=== PATIENT | male | born 1955 | race American Indian/Alaskan Native ===

== ENCOUNTER 2017-05-13 17:45 | Emergency (ER) | payer OTHER ==
[~2017-05-13 17:45] MED LIST changes: -AMLO10 PO; -ASPI81CH PO; -ATOR40TA PO; -LOSARTAN POTAS100 MG PO; -Toprol Xl50 MG PO; -UROCIT-K5 MEQ PO; -WARF3 PO; -WARF5 PO; -ZOLP10 PO
[2017-11-21] MEDS ORDERED: AMLO10 PO (13:21)
[2017-11-21] MEDS ORDERED: WARF5 PO (13:23)
[2017-11-21] MEDS ORDERED: Toprol Xl50 MG PO (13:27)
[2017-11-21] MEDS ORDERED: ASPI81CH PO (13:28)
[2017-11-21] MEDS ORDERED: ATOR40TA PO (13:28)
[2017-11-22] MEDS ORDERED: ZOLP10 PO (06:22)
[2017-12-26] MEDS ORDERED: UROCIT-K5 MEQ PO (14:47)
[2017-12-26] MEDS ORDERED: LOSARTAN POTAS100 MG PO (16:21)
[2017-12-26] MEDS ORDERED: AMLO10 PO (16:21)
== END 2017-05-13 18:38 | disposition left against medical advice (07) ==
LOC: ER 17:45
DX: Z53.21 Procedure and treatment not carried out due to patient leaving prior to being seen by health care provider (principal)

== ENCOUNTER → 2017-05-13 | Outpatient (CLI) | payer OTHER ==
[~2017-05-13] MED LIST: ALBU90OI61 INH; AMLO10 PO; AMLO10/10; ASPI81CH PO; ATOR40TA PO; BP MED PO; CLEM1.34; CONTRAVE ER 8-1 EACH PO; DYMISTA NASAL S23 GM; HYDCHL25 PO; LANS30EC PO; LOSA25 PO; LOSARTAN POTAS100 MG PO; METCAR500 PO; MOME220I INH; MONT10T PO; OXYC10ER PO; PREVACID PO; TRAM50 PO; Toprol Xl50 MG PO; UROCIT-K5 MEQ PO; WARF3 PO; WARF5 PO; WARF6 PO; ZOLP10 PO; Zofran4 MG PO
[2017-05-13 19:07] LABS: BASOPHILS ABSOLUTE AUTO 0.06 K/mm3 (0.00-0.23); BASOPHILS PERCENT AUTO 0 % (0-2); EOSINOPHILS ABSOLUTE AUTO 0.02 K/mm3 (0.00-0.68); EOSINOPHILS PERCENT AUTO 0 % (0-6); Hematocrit 52.3 % (37.0-53.0); Hemoglobin 17.4 g/dL (13.5-17.5); IMMATURE GRAN ABSOLUTE AUTO 0.14 K/mm3 (0.00-0.10); IMMATURE GRAN PERCENT AUTO 1 % (0-1); LYMPHOCYTES ABSOLUTE AUTO 1.77 K/mm3 (0.84-5.20); LYMPHOCYTES PERCENT AUTO 13 % (21-46); MONOCYTES ABSOLUTE AUTO 1.25 K/mm3 (0.16-1.47); MONOCYTES PERCENT AUTO 9 % (4-13); Mean Corpuscular HGB 30.9 pg (26.0-34.0); Mean Corpuscular HGB Conc 33.3 g/dL (31.5-36.5); Mean Corpuscular Volume 93 fL (80-100); Mean Platelet Volume 9.9 fL (9.1-12.4); NEUTROPHILS ABSOLUTE AUTO 10.56 K/mm3 (1.96-9.15); NEUTROPHILS PERCENT AUTO 77 % (41-73); Platelet Count 324 K/mm3 (150-400); RDW Coefficient Variation 14.3 % (11.7-14.2); RDW Standard Deviation 48.5 fL (35.1-46.3); Red Blood Cell Count 5.64 M/mm3 (4.30-5.90)
[2017-05-13 19:19] LABS: Albumin, Blood 4.3 g/dL (3.4-5.0); Albumin/Globulin Ratio 1.3 (0.8-1.8); Bilirubin, Total 0.5 mg/dL (0.1-1.0); Bun/Creatinine Ratio 15.4 (12.0-20.0); Calcium, Blood 9.8 mg/dL (8.5-10.1); Creatinine, Blood 1.43 mg/dL (0.60-1.20); Globulin, Blood 3.3 g/dL (2.2-4.0); Potassium, Blood 4.3 mmol/L (3.5-5.5); Total Protein, Blood 7.6 g/dL (6.4-8.2)
== END ==
LOC: LAB EV 19:03
PROVIDERS: Internal Medicine
DX: R10.9 Unspecified abdominal pain (principal)
CPT/HCPCS: 80053; 85025

== ENCOUNTER 2017-05-15 07:30 | Emergency (ER) | payer OTHER ==
[~2017-05-15] VITALS: Ht 185.4 cm; Wt 113.4 kg
[2017-05-15 08:22] LABS: BASOPHILS ABSOLUTE AUTO 0.03 K/mm3 (0.00-0.23); BASOPHILS PERCENT AUTO 0 % (0-2); EOSINOPHILS ABSOLUTE AUTO 0.01 K/mm3 (0.00-0.68); EOSINOPHILS PERCENT AUTO 0 % (0-6); Hematocrit 47.5 % (37.0-53.0); Hemoglobin 15.3 g/dL (13.5-17.5); IMMATURE GRAN ABSOLUTE AUTO 0.11 K/mm3 (0.00-0.10); IMMATURE GRAN PERCENT AUTO 1 % (0-1); LYMPHOCYTES ABSOLUTE AUTO 1.11 K/mm3 (0.84-5.20); LYMPHOCYTES PERCENT AUTO 6 % (21-46); MONOCYTES ABSOLUTE AUTO 1.45 K/mm3 (0.16-1.47); MONOCYTES PERCENT AUTO 8 % (4-13); Mean Corpuscular HGB 29.8 pg (26.0-34.0); Mean Corpuscular HGB Conc 32.2 g/dL (31.5-36.5); Mean Corpuscular Volume 93 fL (80-100); Mean Platelet Volume 9.3 fL (9.1-12.4); NEUTROPHILS ABSOLUTE AUTO 15.03 K/mm3 (1.96-9.15); NEUTROPHILS PERCENT AUTO 85 % (41-73); Platelet Count 271 K/mm3 (150-400); RDW Coefficient Variation 14.1 % (11.7-14.2); RDW Standard Deviation 48.3 fL (35.1-46.3); Red Blood Cell Count 5.13 M/mm3 (4.30-5.90); White Blood Cell Count 17.74 K/mm3 (4.00-11.30)
[2017-05-15 08:42] LABS: Bun/Creatinine Ratio 11.6 (12.0-20.0); Calcium, Blood 8.5 mg/dL (8.5-10.1); Creatinine, Blood 2.07 mg/dL (0.60-1.20)
[2017-05-15 09:07] LABS: Albumin, Blood 3.4 g/dL (3.4-5.0); Albumin/Globulin Ratio 0.8 (0.8-1.8); Bilirubin, Total 0.5 mg/dL (0.1-1.0); Bun/Creatinine Ratio 11.8 (12.0-20.0); Calcium, Blood 8.6 mg/dL (8.5-10.1); Creatinine, Blood 2.04 mg/dL (0.60-1.20); Total Protein, Blood 7.4 g/dL (6.4-8.2)
[2017-05-15 09:10] LABS: International Normalized Ratio 3.25; Prothrombin Time Results 35.1 Sec (9.7-11.5)
[2017-05-15 09:34] LABS: Source, Urine Clean Catch
[2017-05-15 09:39] LABS: Bilirubin, Urine Neg (Neg); Blood, Urine 3+ (Neg); Glucose Qualitative, Urine Neg (Neg); Ketones, Urine 2+ (Neg); Leukocyte Esterase, Urine Neg (Neg); Nitrite, Urine Neg (Neg); Protein, Urine 1+ (Neg); Urobilinogen, Urine NORM (Normal)
[2017-05-15 10:21] LABS: Appearance, Urine Clear (Clear); Color, Urine Yellow (P-Yellow)
[2017-05-15 10:23] LABS: Bacteria Rare /hpf; Squamous Epithelial Cells Rare /hpf (Few)
[2017-11-21] MEDS ORDERED: AMLO10 PO (13:21)
[2017-11-21] MEDS ORDERED: WARF5 PO (13:23)
[2017-11-21] MEDS ORDERED: Toprol Xl50 MG PO (13:27)
[2017-11-21] MEDS ORDERED: ASPI81CH PO (13:28)
[2017-11-21] MEDS ORDERED: ATOR40TA PO (13:28)
[2017-11-22] MEDS ORDERED: ZOLP10 PO (06:22)
[2017-12-26] MEDS ORDERED: UROCIT-K5 MEQ PO (14:47)
[2017-12-26] MEDS ORDERED: AMLO10 PO (16:21)
[2017-12-26] MEDS ORDERED: LOSARTAN POTAS100 MG PO (16:21)
== END 2017-05-15 11:48 | disposition short-term general hospital (02) ==
LOC: ER 07:30
PROVIDERS: Emergency Medicine
DX: N13.2 Hydronephrosis with renal and ureteral calculous obstruction (principal); N17.9 Acute kidney failure, unspecified; I10 Essential (primary) hypertension; F17.220 Nicotine dependence, chewing tobacco, uncomplicated; Z79.01 Long term (current) use of anticoagulants; Z86.711 Personal history of pulmonary embolism; Z79.899 Other long term (current) drug therapy; Z79.51 Long term (current) use of inhaled steroids
CPT/HCPCS: 36415; 74176; 80048; 80053; 81001; 83690; 85025; 85610; 96374; 96375; 96376; 99285; J1170; J1885; J2405; J7120

== ENCOUNTER → 2017-06-22 | Outpatient (CLI) | payer OTHER | LOC: PLD 15:11 → LAB SHORT 15:11 | DX: D22.5 Melanocytic nevi of trunk (principal) | CPT/HCPCS: 88305 ==

== ENCOUNTER → 2017-08-16 | Outpatient (CLI) | payer OTHER | END | disposition home or self-care (01) | LOC: PLD 07:32 → LAB SHORT 07:32 | DX: D48.5 Neoplasm of uncertain behavior of skin (principal) | CPT/HCPCS: 88305 ==

== ENCOUNTER 2017-11-22 00:55 | Day surgery (SDC) | payer OTHER ==
[2017-11-21 09:43] LABS: BASOPHILS ABSOLUTE AUTO 0.05 K/mm3 (0.00-0.23); BASOPHILS PERCENT AUTO 1 % (0-2); EOSINOPHILS ABSOLUTE AUTO 0.01 K/mm3 (0.00-0.68); EOSINOPHILS PERCENT AUTO 0 % (0-6); Hematocrit 50.8 % (37.0-53.0); Hemoglobin 16.5 g/dL (13.5-17.5); IMMATURE GRAN ABSOLUTE AUTO 0.12 K/mm3 (0.00-0.10); IMMATURE GRAN PERCENT AUTO 1 % (0-1); LYMPHOCYTES ABSOLUTE AUTO 1.44 K/mm3 (0.84-5.20); LYMPHOCYTES PERCENT AUTO 13 % (21-46); MONOCYTES PERCENT AUTO 7 % (4-13); Mean Corpuscular HGB 30.9 pg (26.0-34.0); Mean Corpuscular HGB Conc 32.5 g/dL (31.5-36.5); Mean Corpuscular Volume 95 fL (80-100); Mean Platelet Volume 9.7 fL (9.1-12.4); NEUTROPHILS ABSOLUTE AUTO 8.32 K/mm3 (1.96-9.15); NEUTROPHILS PERCENT AUTO 78 % (41-73); NRBC ABSOLUTE 0.02 K/mm3 (0.00-0.02); NRBC Auto 0.2 /100 WBC (0.0-0.2); Platelet Count 252 K/mm3 (150-400); RDW Coefficient Variation 13.7 % (11.7-14.2); RDW Standard Deviation 48.1 fL (35.1-46.3); Red Blood Cell Count 5.34 M/mm3 (4.30-5.90); White Blood Cell Count 10.74 K/mm3 (4.00-11.30)
[2017-11-21 09:56] LABS: International Normalized Ratio 1.25; Prothrombin Time Results 12.7 Sec (9.7-11.5)
[2017-11-21 10:16] LABS: Anion Gap 7 mmol/L (6-16); Blood Urea Nitrogen 14 mg/dL (8-24); Bun/Creatinine Ratio 13.1 (12.0-20.0); CO2, Blood 27 mmol/L (21-32); Calcium, Blood 9.4 mg/dL (8.5-10.1); Chloride, Blood 104 mmol/L (98-108); Creatinine, Blood 1.07 mg/dL (0.60-1.20); Glomerular Filtration Rate >60 (60-); Glucose, Blood 164 mg/dL (70-99); Potassium, Blood 3.9 mmol/L (3.5-5.5); Sodium, Blood 138 mmol/L (136-145)
[~2017-11-22] VITALS: Ht 185.4 cm; Wt 127.0 kg
[~2017-11-22 00:55] MED LIST changes: +AMLO10 PO; +ASPI81CH PO; +ATOR40TA PO; +Toprol Xl50 MG PO; +WARF5 PO
[2017-11-22] MEDS ORDERED: ZOLP5 PO (06:22)
[2017-11-22] MEDS ORDERED: WARF3 PO (06:22)
== END 2017-11-22 12:15 | disposition home or self-care (01) ==
LOC: MHTC 00:55
PROVIDERS: Internal Medicine Cardiovascular Disease
DX: R94.39 Abnormal result of other cardiovascular function study (principal); R06.09 Other forms of dyspnea; Z86.711 Personal history of pulmonary embolism; I10 Essential (primary) hypertension; E78.5 Hyperlipidemia, unspecified; E66.01 Morbid (severe) obesity due to excess calories; G47.33 Obstructive sleep apnea (adult) (pediatric); Z79.01 Long term (current) use of anticoagulants; Z79.899 Other long term (current) drug therapy; Z68.37 Body mass index [BMI] 37.0-37.9, adult
CPT/HCPCS: 36415; 80048; 85025; 85610; 93458; 99152; 99153; C1769; C1894; J0690; J1644; J2250; J3010; J7030; Q9967

== ENCOUNTER 2018-03-02 18:19 | Emergency (ER) | payer OTHER ==
[~2018-03-02] VITALS: Ht 182.9 cm; Wt 127.0 kg
[~2018-03-02 18:19] MED LIST changes: +LOSARTAN POTAS100 MG PO; +UROCIT-K5 MEQ PO; +WARF3 PO; +ZOLP10 PO
[2018-03-02 19:17] LABS: BASOPHILS ABSOLUTE AUTO 0.04 K/mm3 (0.00-0.23); BASOPHILS PERCENT AUTO 0 % (0-2); EOSINOPHILS ABSOLUTE AUTO 0.04 K/mm3 (0.00-0.68); EOSINOPHILS PERCENT AUTO 0 % (0-6); Hematocrit 51.2 % (37.0-53.0); Hemoglobin 16.5 g/dL (13.5-17.5); IMMATURE GRAN ABSOLUTE AUTO 0.09 K/mm3 (0.00-0.10); IMMATURE GRAN PERCENT AUTO 1 % (0-1); LYMPHOCYTES PERCENT AUTO 15 % (21-46); MONOCYTES ABSOLUTE AUTO 0.82 K/mm3 (0.16-1.47); MONOCYTES PERCENT AUTO 7 % (4-13); Mean Corpuscular HGB 31.4 pg (26.0-34.0); Mean Corpuscular HGB Conc 32.2 g/dL (31.5-36.5); Mean Corpuscular Volume 98 fL (80-100); NEUTROPHILS ABSOLUTE AUTO 8.87 K/mm3 (1.96-9.15); NEUTROPHILS PERCENT AUTO 76 % (41-73); Platelet Count 229 K/mm3 (150-400); RDW Standard Deviation 50.4 fL (35.1-46.3); Red Blood Cell Count 5.25 M/mm3 (4.30-5.90); White Blood Cell Count 11.66 K/mm3 (4.00-11.30)
[2018-03-02 19:30] LABS: International Normalized Ratio 0.98; Prothrombin Time Results 10.1 Sec (9.7-11.5)
[2018-03-02 19:32] LABS: Alanine Aminotransfer (ALT/SGP 73 U/L (12-78); Albumin, Blood 3.6 g/dL (3.4-5.0); Alk Phos 120 U/L (50-136); Anion Gap 8 mmol/L (6-16); Aspartate Aminotrans (AST/SGOT 34 U/L (12-37); Bilirubin, Total 0.4 mg/dL (0.1-1.0); Blood Urea Nitrogen 19 mg/dL (8-24); Bun/Creatinine Ratio 15.6 (12.0-20.0); CO2, Blood 26 mmol/L (21-32); Calcium, Blood 9.2 mg/dL (8.5-10.1); Chloride, Blood 105 mmol/L (98-108); Creatinine, Blood 1.22 mg/dL (0.60-1.20); Globulin, Blood 3.7 g/dL (2.2-4.0); Glomerular Filtration Rate >60 (60-); Glucose, Blood 265 mg/dL (70-99); Potassium, Blood 4.1 mmol/L (3.5-5.5); Sodium, Blood 139 mmol/L (136-145); Total Protein, Blood 7.3 g/dL (6.4-8.2)
== END 2018-03-02 21:25 | disposition home or self-care (01) ==
LOC: ER 18:19
PROVIDERS: Emergency Medicine
DX: K92.1 Melena (principal); I10 Essential (primary) hypertension; Z79.899 Other long term (current) drug therapy
CPT/HCPCS: 36415; 80053; 82272; 85025; 85610; 85730; 99283

== ENCOUNTER 2018-08-06 05:49 | Emergency (ER) | payer OTHER ==
[~2018-08-06] VITALS: Ht 185.4 cm; Wt 127.0 kg
[2018-08-06] MEDS ORDERED: Norco 5-325 Ta1 EACH PO (07:04)
[2018-08-06] MEDS ORDERED: Zofran8 MG PO (07:04)
== END 2018-08-06 07:14 | disposition home or self-care (01) ==
LOC: ER 05:49
DX: M54.41 Lumbago with sciatica, right side (principal); Z79.01 Long term (current) use of anticoagulants; Z79.899 Other long term (current) drug therapy; Z79.82 Long term (current) use of aspirin; I10 Essential (primary) hypertension; Z87.891 Personal history of nicotine dependence
CPT/HCPCS: 96372; 99283-25; J3301; J7512

== ENCOUNTER 2018-10-06 15:37 | Emergency (ER) | payer OTHER ==
[~2018-10-06] VITALS: Ht 175.3 cm; Wt 127.0 kg
[~2018-10-06 15:37] MED LIST changes: +Norco 5-325 Ta1 EACH PO; +Zofran8 MG PO
[2018-10-06] MEDS ORDERED: XARELTO20 MG PO (15:52)
[2018-10-06 17:03] LABS: Source, Urine Clean Catch
[2018-10-06 17:18] LABS: Bilirubin, Urine Neg (Neg); Blood, Urine 1+ (Neg); Glucose Qualitative, Urine Neg (Neg); Ketones, Urine 1+ (Neg); Leukocyte Esterase, Urine Neg (Neg); Nitrite, Urine Neg (Neg); Protein, Urine 2+ (Neg); Urobilinogen, Urine NORM (Normal)
[2018-10-06 18:11] LABS: Appearance, Urine Clear (Clear); Color, Urine Yellow (P-Yellow)
[2018-10-06 18:12] LABS: Bacteria Few /hpf; Squamous Epithelial Cells Few /hpf (Few); White Blood Cells, Urine 0-2 /hpf (0-5)
[2018-10-06 18:13] LABS: Amorphous Light (0-Heavy); Red Blood Cells, Urine Rare /hpf (0-2)
== END 2018-10-06 19:05 | disposition home or self-care (01) ==
LOC: ER 15:37
PROVIDERS: Physician Assistant
DX: G89.18 Other acute postprocedural pain (principal); M54.5 Low back pain; M25.551 Pain in right hip; I10 Essential (primary) hypertension; E11.9 Type 2 diabetes mellitus without complications; E78.5 Hyperlipidemia, unspecified; Z86.711 Personal history of pulmonary embolism; Z86.718 Personal history of other venous thrombosis and embolism; Z87.891 Personal history of nicotine dependence; Z98.890 Other specified postprocedural states
CPT/HCPCS: 73502; 81001; 87086; 96372; 99284-25; A9270; A9270-GY; J1170

== ENCOUNTER → 2018-11-09 | Outpatient (CLI) | payer OTHER ==
[~2018-11-09] MED LIST changes: +XARELTO20 MG PO
[2018-11-09 19:54] LABS: Prostate Specific Antigen 0.442 ng/mL (0.000-4.000)
== END | disposition home or self-care (01) ==
LOC: LAB 16:06 → LAB SHORT 16:06
PROVIDERS: Hospitalist
DX: Z12.5 Encounter for screening for malignant neoplasm of prostate (principal); E11.9 Type 2 diabetes mellitus without complications
CPT/HCPCS: 83036; G0103

== ENCOUNTER → 2019-07-12 | Outpatient (CLI) | payer OTHER ==
[2019-07-12 14:51] LABS: BASOPHILS ABSOLUTE AUTO 0.08 K/mm3 (0.00-0.23); BASOPHILS PERCENT AUTO 1 % (0-2); EOSINOPHILS ABSOLUTE AUTO 0.08 K/mm3 (0.00-0.68); EOSINOPHILS PERCENT AUTO 1 % (0-6); Hemoglobin 17.1 g/dL (13.5-17.5); IMMATURE GRAN ABSOLUTE AUTO 0.14 K/mm3 (0.00-0.10); IMMATURE GRAN PERCENT AUTO 1 % (0-1); LYMPHOCYTES ABSOLUTE AUTO 3.14 K/mm3 (0.84-5.20); LYMPHOCYTES PERCENT AUTO 28 % (21-46); MONOCYTES ABSOLUTE AUTO 1.08 K/mm3 (0.16-1.47); MONOCYTES PERCENT AUTO 10 % (4-13); Mean Corpuscular HGB 31.4 pg (26.0-34.0); Mean Corpuscular HGB Conc 30.8 g/dL (31.5-36.5); Mean Corpuscular Volume 102 fL (80-100); Mean Platelet Volume 10.7 fL (9.1-12.4); NEUTROPHILS ABSOLUTE AUTO 6.84 K/mm3 (1.96-9.15); NEUTROPHILS PERCENT AUTO 60 % (41-73); NRBC ABSOLUTE 0.02 K/mm3 (0.00-0.02); NRBC Auto 0.2 /100 WBC (0.0-0.2); Platelet Count 294 K/mm3 (150-400); RDW Coefficient Variation 14.7 % (11.7-14.2); RDW Standard Deviation 55.7 fL (35.1-46.3); Red Blood Cell Count 5.44 M/mm3 (4.30-5.90); White Blood Cell Count 11.36 K/mm3 (4.00-11.30)
[2019-07-12 14:54] LABS: Hematocrit 55.5 % (37.0-53.0)
[2019-07-12 16:43] LABS: Alanine Aminotransfer (ALT/SGP 79 U/L (12-78); Albumin, Blood 3.8 g/dL (3.4-5.0); Albumin/Globulin Ratio 1.1 (0.8-1.8); Alk Phos 120 U/L (50-136); Anion Gap 6 mmol/L (6-16); Aspartate Aminotrans (AST/SGOT 36 U/L (12-37); Bilirubin, Total 0.5 mg/dL (0.1-1.0); Blood Urea Nitrogen 19 mg/dL (8-24); Bun/Creatinine Ratio 16.7 (12.0-20.0); CO2, Blood 30 mmol/L (21-32); Calcium, Blood 9.5 mg/dL (8.5-10.1); Chloride, Blood 108 mmol/L (98-108); Creatinine, Blood 1.14 mg/dL (0.60-1.20); Globulin, Blood 3.5 g/dL (2.2-4.0); Glomerular Filtration Rate >60 (60-); Glucose, Blood 104 mg/dL (70-99); Potassium, Blood 4.7 mmol/L (3.5-5.5); Prostate Specific Antigen 0.539 ng/mL (0.000-4.000); Sodium, Blood 144 mmol/L (136-145); Total Protein, Blood 7.3 g/dL (6.4-8.2)
[2019-07-16 12:17] LABS: CHOL/HDL RATIO 2.6; Cholesterol 148 mg/dL (50-200); HDL Cholesterol 56 mg/dL (>39); LDL/HDL RATIO 1.2; Low Density Lipoprotein Chol 68 mg/dL (0-110); Triglycerides 118 mg/dL (30-160); Very Low Density Lipoprot Chol 23 mg/dL (6-32)
== END | disposition home or self-care (01) ==
LOC: LAB 09:25 → LAB SHORT 09:25
PROVIDERS: Hospitalist
DX: Z12.5 Encounter for screening for malignant neoplasm of prostate (principal); E11.65 Type 2 diabetes mellitus with hyperglycemia; E78.5 Hyperlipidemia, unspecified; I10 Essential (primary) hypertension
CPT/HCPCS: 80053; 80061; 85025; G0103

== ENCOUNTER → 2020-01-14 | Outpatient (CLI) | payer MEDICARE, OTHER | END | disposition home or self-care (01) | LOC: PLD 10:41 → LAB SHORT 10:41 | DX: D48.5 Neoplasm of uncertain behavior of skin (principal); L82.1 Other seborrheic keratosis | CPT/HCPCS: 88305 ==

== ENCOUNTER 2021-05-27 09:40 | Inpatient (IN) | payer MEDICARE, OTHER ==
[~2021-05-27] VITALS: Ht 185.4 cm; Wt 129.5 kg
[~2021-05-27 09:40] MED LIST changes: -Toprol Xl50 MG PO; -XARELTO20 MG PO
[2021-05-27 10:37] LABS: BASOPHILS ABSOLUTE AUTO 0.07 K/mm3 (0.00-0.23); BASOPHILS PERCENT AUTO 1 % (0-2); EOSINOPHILS ABSOLUTE AUTO 0.07 K/mm3 (0.00-0.68); EOSINOPHILS PERCENT AUTO 1 % (0-6); Hematocrit 48.4 % (37.0-53.0); Hemoglobin 15.4 g/dL (13.5-17.5); IMMATURE GRAN ABSOLUTE AUTO 0.14 K/mm3 (0.00-0.10); IMMATURE GRAN PERCENT AUTO 2 % (0-1); LYMPHOCYTES ABSOLUTE AUTO 1.59 K/mm3 (0.84-5.20); LYMPHOCYTES PERCENT AUTO 17 % (21-46); MONOCYTES ABSOLUTE AUTO 0.92 K/mm3 (0.16-1.47); MONOCYTES PERCENT AUTO 10 % (4-13); Mean Corpuscular HGB 30.1 pg (26.0-34.0); Mean Corpuscular HGB Conc 31.8 g/dL (31.5-36.5); Mean Corpuscular Volume 95 fL (80-100); Mean Platelet Volume 10.4 fL (9.1-12.4); NEUTROPHILS ABSOLUTE AUTO 6.72 K/mm3 (1.96-9.15); NEUTROPHILS PERCENT AUTO 71 % (41-73); Platelet Count 290 K/mm3 (150-400); RDW Coefficient Variation 14.6 % (11.7-14.2); RDW Standard Deviation 51.2 fL (35.1-46.3); Red Blood Cell Count 5.12 M/mm3 (4.30-5.90); White Blood Cell Count 9.51 K/mm3 (4.00-11.30)
[2021-05-27 11:01] LABS: Alanine Aminotransfer (ALT/SGP 46 U/L (12-78); Albumin, Blood 3.2 g/dL (3.4-5.0); Albumin/Globulin Ratio 0.8 (0.8-1.8); Alk Phos 120 U/L (50-136); Anion Gap 3 mmol/L (6-16); Aspartate Aminotrans (AST/SGOT 24 U/L (12-37); Bilirubin, Total 0.3 mg/dL (0.1-1.0); Blood Urea Nitrogen 14 mg/dL (8-24); Bun/Creatinine Ratio 15.8 (12.0-20.0); CO2, Blood 26 mmol/L (21-32); Calcium, Blood 9.4 mg/dL (8.5-10.1); Chloride, Blood 108 mmol/L (98-108); Creatinine, Blood 0.89 mg/dL (0.60-1.20); Globulin, Blood 4.1 g/dL (2.2-4.0); Glomerular Filtration Rate >60 (60-); Glucose, Blood 260 mg/dL (70-99); Potassium, Blood 4.1 mmol/L (3.5-5.5); Sodium, Blood 137 mmol/L (136-145); Total Protein, Blood 7.3 g/dL (6.4-8.2)
[2021-05-27] MEDS ORDERED: XARELTO20 MG PO ×2 (12:09)
[2021-05-27] MEDS ORDERED: TRAM50 PO ×2 (12:09)
[2021-05-27] MEDS ORDERED: LANS30EC PO ×2 (12:09)
[2021-05-27] MEDS ORDERED: Toprol Xl50 MG PO ×2 (12:09)
[2021-05-27] MEDS ORDERED: NOVOLIN 70100 UNIT/4 SC ×2 (12:35)
[2021-05-27] MEDS ORDERED: METF500 PO ×2 (12:35)
[2021-05-27] MEDS ORDERED: POTCIT10 PO ×2 (15:32)
[2021-05-27] MEDS ORDERED: LOSA50 PO ×2 (15:33)
[2021-05-27] MEDS ORDERED: GLIM4 PO ×2 (15:34)
[2021-05-27] MEDS ORDERED: TORSE20 PO ×2 (15:35)
[2021-05-27] MEDS ORDERED: TRADJENTA5 MG PO ×2 (15:36)
[2021-05-27] MEDS ORDERED: AMBIEN5 MG PO ×2 (15:38)
--- NOTE | 2021-05-27 18:07 | NUR ---
PT ARRIVED 1445 AOX4 AND COOPERATIVE OF CARE. PT WAS SETTLED INTO ROOM AND CALL LIGHT WITHIN REACH. PT DENIES ANY NEED FOR PAIN MED. REDNSS ON R ARM HOT TO THE TOUCH. PT IS INDEPENDENT IN ROOM. NO DISTRESS NOTED AT THIS TIME. WILL CONTINUE TO MONITOR.
--- NOTE | 2021-05-28 04:44 | NUR ---
PT IS AWAKE THIS MORNING. PT IS ALERT AND ORIENTED X 4, ON RA BUT DOES USE HIS HOME CPAP AT NIGHT, NOT MONITORED. PT HAS R UA ABCESS THAT IS WARM TO TOUCH, SKIN HAS BEEN MARKED FOR MONITORING. PT DID C/O A HEADACHE, MEDICATED PER EMAR. NO C/O SOB, N/V. PT REMAINED AFEBRILE. NO ACUTE EVENTS OVERNIGHT, PT BELONGINGS AND CALL LIGHT WITHIN REACH.
[2021-05-28 04:54] LABS: Hematocrit 45.2 % (37.0-53.0); Hemoglobin 14.5 g/dL (13.5-17.5); Mean Corpuscular HGB 29.7 pg (26.0-34.0); Mean Corpuscular HGB Conc 32.1 g/dL (31.5-36.5); Mean Corpuscular Volume 92 fL (80-100); Mean Platelet Volume 10.3 fL (9.1-12.4); Platelet Count 255 K/mm3 (150-400); RDW Coefficient Variation 14.7 % (11.7-14.2); RDW Standard Deviation 49.8 fL (35.1-46.3); Red Blood Cell Count 4.89 M/mm3 (4.30-5.90); White Blood Cell Count 9.69 K/mm3 (4.00-11.30)
--- NOTE | 2021-05-28 11:21 | NUR ---
Spiritual Care Visit Request Pt. is awake and in bed. Pt. welcomes my visit. Pt. is pleasant and talkative. Pt. becomes unsettled when nure arrive to give Lovenox injection. After nurse left I sought to normalize the pt. experience. Pt. displayed evidence of reduced anxiety. Established rapport with the pt. through lengthy conversation. Explored issues of james and experience. Prayed with pt. Pt. verbalized gratitude for the spiritual care visit.
--- NOTE | 2021-05-28 17:06 | NUR ---
End of Shift Summary: No changes in mass on right/UE, pt reported 2 new, smaller masses near right/clavicle. IV ABX administred, VSS, afebrile, CBGs 180-263 SSI given AC. Patient denies pain/discomfort r/t masses, only reporting MELISSA.
--- NOTE | 2021-05-29 05:01 | NUR ---
SUMMARY: A/OX4, INDEPENDENT AND CALLS APPROPRIATELY TO SPECIFY NEEDS. HE'S ON IV ABX FOR ASHLEY CELLULITIS. LUMP OBSERVED TO BE RED, WARM AND HARD BUT REMAINS WITHIN DEMARCATED REGION. HE REPORTS AN ADDITIONAL SITE AT R.CLAVICLE BUT ADMITS HE LIKELY "PULLED A MUSCLE MOVING A REFRIGERATOR" PRIOR TO ADMIT. PLAN IS FOR REPEAT SCAN AND TX W/ABX W/NO SURGICAL INTERVENTION REQUIRED AT THIS TIME. TYLENOL AND ULTRAM WERE RECIEVED PRN FOR TOLERABLE RELIEF OF MELISSA. PT APPEARS FLUSHED AND MAYDA BUT WAS AFEBRILE T/O NOCTE. HE WORE CPAP AT BEDTIME AND IS ON RA WA. NO ACUTE CHANGES, VSS/AFEBRILE. WCTM AND REPORT TO DAY RN.
--- NOTE | 2021-05-29 18:10 | NUR ---
END OF SHIFT SUMMARY: Pt had ultrasound done on RUE, results in chart. Hospitalist consulting with Ortho, to discuss abscess draining. No changes to mass on RUE, two smaller masses near clavicle, normal in color/soft. Rightforearm IV infiltration, fluid leaking at site, edematous. D/C'd IV, unable to place new IV. Vitals stable, CBG WNL SSI given this shift.
[2021-05-30 04:47] LABS: BASOPHILS ABSOLUTE AUTO 0.06 K/mm3 (0.00-0.23); BASOPHILS PERCENT AUTO 1 % (0-2); EOSINOPHILS PERCENT AUTO 1 % (0-6); Hematocrit 45.1 % (37.0-53.0); Hemoglobin 14.4 g/dL (13.5-17.5); IMMATURE GRAN ABSOLUTE AUTO 0.17 K/mm3 (0.00-0.10); IMMATURE GRAN PERCENT AUTO 2 % (0-1); LYMPHOCYTES ABSOLUTE AUTO 1.54 K/mm3 (0.84-5.20); LYMPHOCYTES PERCENT AUTO 17 % (21-46); MONOCYTES ABSOLUTE AUTO 1.01 K/mm3 (0.16-1.47); MONOCYTES PERCENT AUTO 11 % (4-13); Mean Corpuscular HGB 29.8 pg (26.0-34.0); Mean Corpuscular HGB Conc 31.9 g/dL (31.5-36.5); Mean Corpuscular Volume 93 fL (80-100); Mean Platelet Volume 10.1 fL (9.1-12.4); NEUTROPHILS ABSOLUTE AUTO 6.02 K/mm3 (1.96-9.15); NEUTROPHILS PERCENT AUTO 68 % (41-73); NRBC ABSOLUTE 0.03 K/mm3 (0.00-0.02); NRBC Auto 0.3 /100 WBC (0.0-0.2); Platelet Count 273 K/mm3 (150-400); RDW Coefficient Variation 14.5 % (11.7-14.2); RDW Standard Deviation 50.1 fL (35.1-46.3); Red Blood Cell Count 4.83 M/mm3 (4.30-5.90)
--- NOTE | 2021-05-30 05:13 | NUR ---
SUMMARY NO NEW ISSUES NOTED. PT DISCOMFORT TX PER EMAR W/ RELIEF. PT HAS SLEPT WELL T/O SHIFT W/ CPAP. PT CURRENTLY SLEEPING IN NO DISTRESS AND BREATHING EASY. CALL LIGHT IN REACH.
[2021-05-30 05:15] LABS: Anion Gap 5 mmol/L (6-16); Blood Urea Nitrogen 12 mg/dL (8-24); Bun/Creatinine Ratio 11.7 (12.0-20.0); CO2, Blood 27 mmol/L (21-32); Calcium, Blood 8.2 mg/dL (8.5-10.1); Chloride, Blood 108 mmol/L (98-108); Creatinine, Blood 1.03 mg/dL (0.60-1.20); Glomerular Filtration Rate >60 (60-); Glucose, Blood 163 mg/dL (70-99); Potassium, Blood 4.2 mmol/L (3.5-5.5); Sodium, Blood 140 mmol/L (136-145)
[2021-05-30] MEDS ORDERED: AMOCLA875 PO ×2 (09:53)
[2021-05-30] MEDS ORDERED: VISBIOME 112.51 EACH PO ×2 (09:57)
--- NOTE | 2021-05-30 10:39 | NUR ---
Pt had abscess aspirated this morning culture sent to lab, results pending. met with pt at the bedside and discharged pt home. Education provided to pt/, regarding new Rx for ABX & probiotic, pt/ verbalized understanding. Removed IVP right/forearm. Pt left unit at 1040.
[2021-06-02 11:11] LABS: B. HENSELAE IGG Negative titer (Neg:<1:320); B. HENSELAE IGM Negative titer (Neg:<1:100); B. QUINTANA IGG Negative titer (Neg:<1:320); B. QUINTANA IGM Negative titer (Neg:<1:100)
[2021-06-04] MEDS ORDERED: METO25ER PO (16:56)
[2021-06-04] MEDS ORDERED: CEFTRIAXONE2 G1 IV (16:58)
[2021-06-04] MEDS ORDERED: VANCOMYCIN HCL1 G1 IV (16:59)
[2021-06-04] MEDS ORDERED: Percocet 5-3251 EACH PO (17:05)
== END 2021-05-30 10:38 | disposition home or self-care (01) | DRG 603 ==
LOC: ER 09:40 → MEDS 13:19
PROVIDERS: Internal Medicine; Nurse Practitioner Acute Care; Physician Assistant; ADMIT Internal Medicine
PROC: 0J9G3ZZ Drainage of Right Lower Arm Subcutaneous Tissue and Fascia, Percutaneous Approach (ICD-10-PCS; principal; 2021-05-30)
DX: L03.113 Cellulitis of right upper limb (principal); E11.9 Type 2 diabetes mellitus without complications; I10 Essential (primary) hypertension; K21.9 Gastro-esophageal reflux disease without esophagitis; G47.33 Obstructive sleep apnea (adult) (pediatric); E66.01 Morbid (severe) obesity due to excess calories; Z79.899 Other long term (current) drug therapy; L02.413 Cutaneous abscess of right upper limb; Z98.890 Other specified postprocedural states; Z68.36 Body mass index [BMI] 36.0-36.9, adult; Z87.891 Personal history of nicotine dependence
CPT/HCPCS: 10030; 36415; 73201; 76882; 76942; 80048; 80053; 82947; 83605; 85025; 85027; 86611; 87070; 87075; 87077; 87186; 87205; 96365; 96366; 99284-25; A9270; J0295; J1650; J1815; J7030; J7050; Q9967

== ENCOUNTER 2021-06-02 14:02 | Inpatient (IN) | payer MEDICARE, OTHER ==
[~2021-06-02] VITALS: Ht 185.4 cm; Wt 127.9 kg
[~2021-06-02 14:02] MED LIST changes: +AMBIEN5 MG PO; +AMOCLA875 PO; +GLIM4 PO; +LOSA50 PO; +METF500 PO; +NOVOLIN 70100 UNIT/4 SC; +POTCIT10 PO; +TORSE20 PO; +TRADJENTA5 MG PO; +Toprol Xl50 MG PO; +VISBIOME 112.51 EACH PO; +XARELTO20 MG PO
[2021-06-03 05:35] LABS: BASOPHILS ABSOLUTE AUTO 0.04 K/mm3 (0.00-0.23); BASOPHILS PERCENT AUTO 1 % (0-2); EOSINOPHILS PERCENT AUTO 0 % (0-6); Hematocrit 47.7 % (37.0-53.0); Hemoglobin 14.9 g/dL (13.5-17.5); IMMATURE GRAN ABSOLUTE AUTO 0.17 K/mm3 (0.00-0.10); IMMATURE GRAN PERCENT AUTO 2 % (0-1); LYMPHOCYTES ABSOLUTE AUTO 1.59 K/mm3 (0.84-5.20); LYMPHOCYTES PERCENT AUTO 20 % (21-46); MONOCYTES ABSOLUTE AUTO 0.94 K/mm3 (0.16-1.47); MONOCYTES PERCENT AUTO 12 % (4-13); Mean Corpuscular HGB 28.9 pg (26.0-34.0); Mean Corpuscular HGB Conc 31.2 g/dL (31.5-36.5); Mean Corpuscular Volume 93 fL (80-100); NEUTROPHILS ABSOLUTE AUTO 5.18 K/mm3 (1.96-9.15); NEUTROPHILS PERCENT AUTO 65 % (41-73); Platelet Count 286 K/mm3 (150-400); RDW Coefficient Variation 14.7 % (11.7-14.2); Red Blood Cell Count 5.15 M/mm3 (4.30-5.90); White Blood Cell Count 7.92 K/mm3 (4.00-11.30)
[2021-06-03 05:53] LABS: Anion Gap 6 mmol/L (6-16); Blood Urea Nitrogen 19 mg/dL (8-24); Bun/Creatinine Ratio 21.7 (12.0-20.0); CO2, Blood 26 mmol/L (21-32); Calcium, Blood 8.2 mg/dL (8.5-10.1); Chloride, Blood 108 mmol/L (98-108); Creatinine, Blood 0.88 mg/dL (0.60-1.20); Glomerular Filtration Rate >60 (60-); Glucose, Blood 179 mg/dL (70-99); Magnesium, Blood 2.4 mg/dL (1.6-2.4); Potassium, Blood 4.5 mmol/L (3.5-5.5); Sodium, Blood 140 mmol/L (136-145)
--- NOTE | 2021-06-03 06:47 | NUR ---
SUMMARY NO NEW ISSUES NOTED. PT SLEPT OFF AND ON DURING SHIFT. PT WOUND VAC IN PLACE AND WORKING WELL. PT ABLE AMBULATE TO RESTROOM WELL. PT CURRENTLY AWAKE AND IN NO DISTRESS. CALL LIGHT IN REACH.
--- NOTE | 2021-06-03 14:32 | NUR ---
WOUND CARE; WOUND VAC FUNCTIONING WNL. PT REPORTS VAC DRESSING CHANGE 06/02/21 NOC SHIFT, NEXT DUE 06/05/21. SPOKE WITH CUFF MATCHER ABOUT WOUND CLINIC REFERRAL ON DC.
--- NOTE | 2021-06-03 15:48 | NUR ---
SHIFT SUMMARY POD1 I&D ON R SHOULDER DUE TO ABSCESS BY DR. BLEDSOE. PT REPORTS MINIMAL PAIN, DIDN'T REQUIRE ANY PAIN MEDS T/O SHIFT. AMBULATES INDEPENDETLY IN ROOM, MAY NEED ASSISTANCE WITH CORDS AND IV LINE. SCD'S IN PLACED. DR. MAGALLON CAME IN TO SEE PT TODAY, RESUME HOME DOSE FOR NOVOLIN 70/30 FROM 20 UNITS TO 25 UNITS AND TRAMADOL 50MG Q4 FOR PAIN. XARELTO DOSE ALSO INCREASED FROM 10 TO 20MG DUE TO HX DVT, OK FROM DR. BLEDSOE. WOUND VACC IN PLACED SUCTION WORKING WELL AND SEALED. PT REPORTS SKIN SENSITIVITY WITH DRESSING CHANGE WITH HIS WOUND VAC, DR. BLEDSOE IS AWARE, PT DISCUSSED HIS CONCERNS. NEW ORDER IN PLACE TO PREMEDICATE PT KENDAL FOR DRESSING CHANGED. PT DENIES N/T, CHEST PAIN AND DIZZINESS. IV FLUIDS INFUSING AND ABX ADMINISTERED. CALL LIGHT WITHIN REACH. WILL PROVIDE REPORT TO ONCOMING NURSE.
--- NOTE | 2021-06-03 15:56 | NUR ---
PLAN FOR PICC PLACEMENT FOR LT ABX TX, CHARGE NURSE NOTIFIED.
[2021-06-03 21:32] LABS: Vancomycin, Trough 19.7 ug/mL (5.0-10.0)
--- NOTE | 2021-06-04 04:52 | NUR ---
SUMMARY PT HAD NO NEW ISSUES NOTED. PT HAS BEEN SLEEPING OFF AND ON DURING SHIFT. PT DISCOMFORT TX PER EMAR W/ RELIEF. PT CURRENTLY AWAKE AND IN NO DISTRESS. CALL LIGHT IN REACH.
--- NOTE | 2021-06-04 14:00 | NUR ---
BRADYCARDIA PT'S HR REMAINS <60. METOPROLOL HELD RELATED TO BRADYCARDIA T/O THE DAY. PT IS ASYMPTOMATIC. MESSAGE LEFT FOR DR. MAGALLON TO NOTIFY OF HELD MEDICATION.
--- NOTE | 2021-06-04 14:23 | NUR ---
REPORT GIVEN TO JADA HAMMER. PT NOTIFIED OF CHANGE OF STAFF.
--- NOTE | 2021-06-04 14:34 | NUR ---
ASSUMED CARE OF PATIENT FROM GLORIA RN, PT IN BED AND COMFORTABLE AT THIS TIME, NO SIGNS OF ANY DISTRESS, ABLE TO MAKE NEEDS KNOWN, IV ABX STARTED ORDERED, CALL LIGHT IN REACH. WILL CTM.
[2021-06-04] MEDS ORDERED: METO25ER PO ×2 (16:56)
[2021-06-04] MEDS ORDERED: CEFTRIAXONE2 G1 IV ×2 (16:58)
[2021-06-04] MEDS ORDERED: VANCOMYCIN HCL1 G1 IV ×2 (16:59)
[2021-06-04] MEDS ORDERED: Percocet 5-3251 EACH PO ×2 (17:05)
--- NOTE | 2021-06-04 18:02 | NUR ---
DISCHARGE SUMMARY S/P I&D, A/OX 4, VSS, TOLERATING PO, PAIN WELL MANAGED, AMBULATES INDEPENDENTLY, VOIDING WELL. DISCUSSED DISCHARGE ORDERS WITH THE PATIENT, WENT OVER HOME CARE, HOME HEALTH, MEDICATIONS, AND PICC THERAPY INFUSIONS. ALL QUESTIONS ANSWERED TO PATIENTS SATISFACTION. PT ESCORTED OUT VIA WC TO PRIVATE AUTO TO GO HOME. PICC LINE IN PLACE FOR OUTPATIENT INFUSIONS.
== END 2021-06-04 17:54 | disposition home or self-care (01) | DRG 603 ==
LOC: SURS 14:02 → ORSCMMR 14:02 → ORD 14:45 → SURS 14:45 → ORSCMMR 14:45 → SURS 17:14
PROVIDERS: ADMIT Orthopaedic Surgery
PROC: 0J9D0ZZ Drainage of Right Upper Arm Subcutaneous Tissue and Fascia, Open Approach (ICD-10-PCS; principal; 2021-06-02 14:45)
DX: L02.413 Cutaneous abscess of right upper limb (principal); E11.9 Type 2 diabetes mellitus without complications; I10 Essential (primary) hypertension; Z96.653 Presence of artificial knee joint, bilateral; E66.9 Obesity, unspecified; G47.30 Sleep apnea, unspecified; Z79.899 Other long term (current) drug therapy; Z79.84 Long term (current) use of oral hypoglycemic drugs; Z79.4 Long term (current) use of insulin; Z98.890 Other specified postprocedural states; Z86.718 Personal history of other venous thrombosis and embolism; Z86.711 Personal history of pulmonary embolism
CPT/HCPCS: 36415; 36569; 73201; 80048; 80202; 82947; 83735; 85025; 85651; 86140; 87071; 87075; 87205; 87206; 94660; A9270; C1751; J0690; J0696; J1100; J1815; J1885; J2405; J2704; J3010; J3370; J3480; J7050; J7120; Q9967

== ENCOUNTER 2021-06-05 00:10 | Day surgery (SDC) | payer MEDICARE, OTHER ==
[~2021-06-05] VITALS: Ht 185.4 cm; Wt 123.0 kg
[~2021-06-05 00:10] MED LIST changes: +CEFTRIAXONE2 G1 IV; +METO25ER PO; +Percocet 5-3251 EACH PO; +VANCOMYCIN HCL1 G1 IV
[2021-06-05 09:40] LABS: Creatinine, Blood 1.06 mg/dL (0.60-1.20)
== END 2021-06-05 17:42 | disposition home or self-care (01) ==
LOC: ATC 00:10
PROVIDERS: Internal Medicine
DX: L02.413 Cutaneous abscess of right upper limb (principal); I10 Essential (primary) hypertension; E11.9 Type 2 diabetes mellitus without complications; Z79.4 Long term (current) use of insulin
CPT/HCPCS: 80202; 82565; J0696; J3370; J7050

== ENCOUNTER 2021-06-06 07:58 | Day surgery (SDC) | payer MEDICARE, OTHER | END 2021-06-06 18:30 | disposition home or self-care (01) | LOC: ATC 07:58 | DX: L02.413 Cutaneous abscess of right upper limb (principal) | CPT/HCPCS: J0696; J3370; J7050 ==

== ENCOUNTER 2021-06-07 07:12 | Day surgery (SDC) | payer MEDICARE, OTHER ==
[2021-06-07 08:03] LABS: Vancomycin, Trough 11.9 ug/mL (5.0-10.0)
== END 2021-06-07 18:25 | disposition home or self-care (01) ==
LOC: ATC 07:12
PROVIDERS: Internal Medicine
DX: L02.413 Cutaneous abscess of right upper limb (principal)
CPT/HCPCS: 80202; 82565; 96365; 96366; 96375; J0696; J3370; J7050

== ENCOUNTER 2021-06-08 08:00 | Day surgery (SDC) | payer MEDICARE, OTHER | END 2021-06-08 23:59 | disposition home or self-care (01) | LOC: WOUND 08:00 | DX: L02.413 Cutaneous abscess of right upper limb (principal); E11.628 Type 2 diabetes mellitus with other skin complications; I10 Essential (primary) hypertension; M19.90 Unspecified osteoarthritis, unspecified site; E11.40 Type 2 diabetes mellitus with diabetic neuropathy, unspecified; Z86.718 Personal history of other venous thrombosis and embolism; Z79.01 Long term (current) use of anticoagulants; Z87.891 Personal history of nicotine dependence | CPT/HCPCS: 96365; 96366; 96375; G0463; J0696; J3370; J7050 ==

== ENCOUNTER 2021-06-09 00:56 | Day surgery (SDC) | payer MEDICARE, OTHER | END 2021-06-09 17:45 | disposition home or self-care (01) | LOC: ATC 00:56 | DX: L02.413 Cutaneous abscess of right upper limb (principal) | CPT/HCPCS: J0696; J3370; J7050 ==

== ENCOUNTER 2021-06-10 00:56 | Day surgery (SDC) | payer MEDICARE, OTHER ==
[2021-06-10 08:24] LABS: Creatinine, Blood 1.01 mg/dL (0.60-1.20); Vancomycin, Trough 14.7 ug/mL (5.0-10.0)
== END 2021-06-10 18:25 | disposition home or self-care (01) ==
LOC: ATC 00:56
PROVIDERS: Internal Medicine
DX: L02.413 Cutaneous abscess of right upper limb (principal)
CPT/HCPCS: 80202; 82565; J0696; J3370; J7050

== ENCOUNTER 2021-06-10 02:19 | Day surgery (SDC) | payer MEDICARE, OTHER | END 2021-06-10 23:21 | disposition home or self-care (01) | LOC: WOUND 02:19 | DX: E11.628 Type 2 diabetes mellitus with other skin complications (principal); L02.413 Cutaneous abscess of right upper limb ==

== ENCOUNTER 2021-06-11 01:09 | Day surgery (SDC) | payer MEDICARE, OTHER | END 2021-06-11 18:04 | disposition home or self-care (01) | LOC: ATC 01:09 | DX: L02.413 Cutaneous abscess of right upper limb (principal) | CPT/HCPCS: 96365; 96366; 96375; J0696; J3370; J7050 ==

== ENCOUNTER 2021-06-12 01:34 | Day surgery (SDC) | payer MEDICARE, OTHER | END 2021-06-12 17:53 | disposition home or self-care (01) | LOC: ATC 01:34 | DX: L02.413 Cutaneous abscess of right upper limb (principal); E11.9 Type 2 diabetes mellitus without complications; I10 Essential (primary) hypertension; E66.01 Morbid (severe) obesity due to excess calories; K21.9 Gastro-esophageal reflux disease without esophagitis; Z79.01 Long term (current) use of anticoagulants; Z86.718 Personal history of other venous thrombosis and embolism; Z79.4 Long term (current) use of insulin | CPT/HCPCS: J0696; J3370; J7050 ==

== ENCOUNTER 2021-06-12 03:10 | Day surgery (SDC) | payer MEDICARE, OTHER | END 2021-06-12 23:21 | disposition home or self-care (01) | LOC: WOUND 03:10 | DX: E11.628 Type 2 diabetes mellitus with other skin complications (principal); L02.413 Cutaneous abscess of right upper limb ==

== ENCOUNTER 2021-06-13 01:10 | Day surgery (SDC) | payer MEDICARE, OTHER ==
[2021-06-13 08:45] LABS: Creatinine, Blood 0.92 mg/dL (0.60-1.20); Vancomycin, Trough 13.7 ug/mL (5.0-10.0)
--- NOTE | 2021-06-13 08:59 | NUR ---
HAD TO CALL LAB REGARDING PICC NOT DRAWING TO DRAW VANCO/CR DO TO BACK UP PTS
== END 2021-06-13 17:20 | disposition home or self-care (01) ==
LOC: ATC 01:10
PROVIDERS: Orthopaedic Surgery
DX: L02.413 Cutaneous abscess of right upper limb (principal)
CPT/HCPCS: 80202; 82565; J3370; J7050

== ENCOUNTER 2021-06-14 07:17 | Day surgery (SDC) | payer MEDICARE, OTHER | END 2021-06-14 17:16 | disposition home or self-care (01) | LOC: ATC 07:17 | DX: L02.413 Cutaneous abscess of right upper limb (principal) | CPT/HCPCS: J0696; J3370; J7050; J7060 ==

== ENCOUNTER 2021-06-15 01:35 | Day surgery (SDC) | payer MEDICARE, OTHER | END 2021-06-15 17:58 | disposition home or self-care (01) | LOC: ATC 01:35 | DX: L02.413 Cutaneous abscess of right upper limb (principal) | CPT/HCPCS: J0696; J3370; J7060 ==

== ENCOUNTER 2021-06-15 02:03 | Day surgery (SDC) | payer MEDICARE, OTHER | END 2021-06-15 22:51 | disposition home or self-care (01) | LOC: WOUND 02:03 | DX: L02.413 Cutaneous abscess of right upper limb (principal); E11.628 Type 2 diabetes mellitus with other skin complications | CPT/HCPCS: A9270 ==

== ENCOUNTER 2021-06-16 02:00 | Day surgery (SDC) | payer MEDICARE, OTHER ==
[2021-06-16 08:08] LABS: Creatinine, Blood 0.87 mg/dL (0.60-1.20); Vancomycin, Trough 13.4 ug/mL (5.0-10.0)
== END 2021-06-16 17:30 | disposition home or self-care (01) ==
LOC: ATC 02:00
PROVIDERS: Internal Medicine
DX: L02.413 Cutaneous abscess of right upper limb (principal); E11.9 Type 2 diabetes mellitus without complications; I10 Essential (primary) hypertension; E66.01 Morbid (severe) obesity due to excess calories; Z79.4 Long term (current) use of insulin
CPT/HCPCS: 80202; 82565; J0696; J3370; J7060

== ENCOUNTER 2021-06-17 02:52 | Day surgery (SDC) | payer MEDICARE, OTHER | END 2021-06-17 23:14 | disposition home or self-care (01) | LOC: WOUND 02:52 | DX: L02.413 Cutaneous abscess of right upper limb (principal); E11.628 Type 2 diabetes mellitus with other skin complications | CPT/HCPCS: 96365; 96366; 96375; J0696; J3370; J7060 ==

== ENCOUNTER 2021-06-18 01:33 | Day surgery (SDC) | payer MEDICARE, OTHER | END 2021-06-18 17:10 | disposition home or self-care (01) | LOC: ATC 01:33 | DX: L02.413 Cutaneous abscess of right upper limb (principal) | CPT/HCPCS: 96365; 96366; 96375; J0696; J3370; J7060 ==

== ENCOUNTER 2021-06-19 00:54 | Day surgery (SDC) | payer MEDICARE, OTHER ==
[2021-06-19 08:31] LABS: Creatinine, Blood 0.89 mg/dL (0.60-1.20); Vancomycin, Trough 11.3 ug/mL (5.0-10.0)
== END 2021-06-19 17:50 | disposition home or self-care (01) ==
LOC: ATC 00:54
PROVIDERS: Orthopaedic Surgery
DX: L02.413 Cutaneous abscess of right upper limb (principal); Z79.4 Long term (current) use of insulin; Z79.84 Long term (current) use of oral hypoglycemic drugs
CPT/HCPCS: 80202; 82565; J0696; J3370; J7060

== ENCOUNTER 2021-06-19 01:09 | Day surgery (SDC) | payer MEDICARE, OTHER | END 2021-06-19 23:00 | disposition home or self-care (01) | LOC: WOUND 01:09 | DX: E11.628 Type 2 diabetes mellitus with other skin complications (principal); L02.413 Cutaneous abscess of right upper limb ==

== ENCOUNTER 2021-06-20 04:23 | Day surgery (SDC) | payer MEDICARE, OTHER | END 2021-06-20 17:47 | disposition home or self-care (01) | LOC: ATC 04:23 | DX: L02.413 Cutaneous abscess of right upper limb (principal) | CPT/HCPCS: J0696; J3370; J7060 ==

== ENCOUNTER 2021-06-21 02:26 | Day surgery (SDC) | payer MEDICARE, OTHER | END 2021-06-21 17:42 | disposition home or self-care (01) | LOC: ATC 02:26 | DX: L02.413 Cutaneous abscess of right upper limb (principal) | CPT/HCPCS: J0696; J3370; J7050; J7060 ==

== ENCOUNTER 2021-06-22 08:00 | Day surgery (SDC) | payer MEDICARE, OTHER | END 2021-06-22 23:07 | disposition home or self-care (01) | LOC: WOUND 08:00 | DX: L02.413 Cutaneous abscess of right upper limb (principal); E11.628 Type 2 diabetes mellitus with other skin complications; Z79.01 Long term (current) use of anticoagulants | CPT/HCPCS: G0463 ==

== ENCOUNTER 2021-06-23 00:51 | Day surgery (SDC) | payer MEDICARE, OTHER | END 2021-06-23 16:58 | disposition home or self-care (01) | LOC: ATC 00:51 | DX: L02.413 Cutaneous abscess of right upper limb (principal) | CPT/HCPCS: J0696; J3370; J7060 ==

== ENCOUNTER 2021-06-24 00:49 | Day surgery (SDC) | payer MEDICARE, OTHER | END 2021-06-24 22:46 | disposition home or self-care (01) | LOC: WOUND 00:49 | DX: L02.413 Cutaneous abscess of right upper limb (principal); E11.628 Type 2 diabetes mellitus with other skin complications | CPT/HCPCS: 96365; 96366; 96375; G0463; J0696; J3370; J7060 ==

== ENCOUNTER 2021-06-24 01:02 | Day surgery (SDC) | payer MEDICARE, OTHER | END 2021-06-24 17:26 | disposition home or self-care (01) | LOC: ATC 01:02 | DX: L02.413 Cutaneous abscess of right upper limb (principal) | CPT/HCPCS: J0696; J3370; J7060 ==

== ENCOUNTER 2021-06-26 00:33 | Day surgery (SDC) | payer MEDICARE, OTHER | END 2021-06-26 22:50 | disposition home or self-care (01) | LOC: WOUND 00:33 | DX: L02.413 Cutaneous abscess of right upper limb (principal); E11.628 Type 2 diabetes mellitus with other skin complications | CPT/HCPCS: G0463 ==

== ENCOUNTER 2021-06-26 01:08 | Day surgery (SDC) | payer MEDICARE, OTHER | END 2021-06-26 18:03 | disposition home or self-care (01) | LOC: ATC 01:08 | DX: L02.413 Cutaneous abscess of right upper limb (principal); E11.9 Type 2 diabetes mellitus without complications; I10 Essential (primary) hypertension; E66.01 Morbid (severe) obesity due to excess calories; Z96.653 Presence of artificial knee joint, bilateral; Z79.4 Long term (current) use of insulin; K21.9 Gastro-esophageal reflux disease without esophagitis | CPT/HCPCS: J0696; J2997; J3370; J7060 ==

== ENCOUNTER 2021-06-27 00:43 | Day surgery (SDC) | payer MEDICARE, OTHER | END 2021-06-27 17:43 | disposition home or self-care (01) | LOC: ATC 00:43 | DX: L02.413 Cutaneous abscess of right upper limb (principal) | CPT/HCPCS: J0696; J3370; J7060 ==

== ENCOUNTER 2021-06-28 01:43 | Day surgery (SDC) | payer MEDICARE, OTHER ==
[2021-06-28 07:38] LABS: Creatinine, Blood 0.85 mg/dL (0.60-1.20); Vancomycin, Trough 13.7 ug/mL (5.0-10.0)
== END 2021-06-28 17:30 | disposition home or self-care (01) ==
LOC: ATC 01:43
PROVIDERS: Internal Medicine
DX: L02.413 Cutaneous abscess of right upper limb (principal)
CPT/HCPCS: 80202; 82565; J0696; J3370; J7060

== ENCOUNTER 2021-06-29 01:17 | Day surgery (SDC) | payer MEDICARE, OTHER | END 2021-06-29 17:45 | disposition home or self-care (01) | LOC: ATC 01:17 | DX: L02.413 Cutaneous abscess of right upper limb (principal) | CPT/HCPCS: J0696; J3370; J7060 ==

== ENCOUNTER 2021-06-29 01:35 | Day surgery (SDC) | payer MEDICARE, OTHER | END 2021-06-29 22:55 | disposition home or self-care (01) | LOC: WOUND 01:35 | DX: L02.413 Cutaneous abscess of right upper limb (principal) | CPT/HCPCS: 96365; 96366; 96375; G0463; J0696; J3370; J7060 ==

== ENCOUNTER 2021-06-30 01:22 | Day surgery (SDC) | payer MEDICARE, OTHER | END 2021-06-30 17:35 | disposition home or self-care (01) | LOC: ATC 01:22 | DX: L02.413 Cutaneous abscess of right upper limb (principal) | CPT/HCPCS: J0696; J3370; J7060 ==

== ENCOUNTER 2021-07-01 00:28 | Day surgery (SDC) | payer MEDICARE, OTHER | END 2021-07-01 17:45 | disposition home or self-care (01) | LOC: ATC 00:28 | DX: L02.413 Cutaneous abscess of right upper limb (principal) | CPT/HCPCS: J0696; J3370; J7060 ==

== ENCOUNTER 2021-07-01 00:34 | Day surgery (SDC) | payer MEDICARE, OTHER | END 2021-07-01 22:50 | disposition home or self-care (01) | LOC: WOUND 00:34 | DX: L02.413 Cutaneous abscess of right upper limb (principal); E11.628 Type 2 diabetes mellitus with other skin complications; S41.001A Unspecified open wound of right shoulder, initial encounter; S41.101A Unspecified open wound of right upper arm, initial encounter; X58.XXXA Exposure to other specified factors, initial encounter | CPT/HCPCS: A9270; G0463 ==

== ENCOUNTER 2021-07-03 00:05 | Day surgery (SDC) | payer MEDICARE, OTHER | END 2021-07-03 17:42 | disposition home or self-care (01) | LOC: ATC 00:05 | DX: L02.413 Cutaneous abscess of right upper limb (principal); E66.01 Morbid (severe) obesity due to excess calories; E11.9 Type 2 diabetes mellitus without complications; I10 Essential (primary) hypertension; K21.9 Gastro-esophageal reflux disease without esophagitis; Z86.718 Personal history of other venous thrombosis and embolism; Z79.01 Long term (current) use of anticoagulants; Z86.711 Personal history of pulmonary embolism; Z79.4 Long term (current) use of insulin | CPT/HCPCS: J0696; J3370; J7060 ==

== ENCOUNTER 2021-07-03 00:06 | Day surgery (SDC) | payer MEDICARE, OTHER | END 2021-07-03 22:58 | disposition home or self-care (01) | LOC: WOUND 00:06 | DX: L02.413 Cutaneous abscess of right upper limb (principal); E11.628 Type 2 diabetes mellitus with other skin complications | CPT/HCPCS: G0463 ==

== ENCOUNTER 2021-07-04 07:07 | Day surgery (SDC) | payer MEDICARE, OTHER | END 2021-07-04 18:10 | disposition home or self-care (01) | LOC: ATC 07:07 | DX: L02.413 Cutaneous abscess of right upper limb (principal); E78.5 Hyperlipidemia, unspecified; I10 Essential (primary) hypertension; Z79.899 Other long term (current) drug therapy | CPT/HCPCS: J0696; J3370; J7060 ==

== ENCOUNTER 2021-07-05 02:23 | Day surgery (SDC) | payer MEDICARE, OTHER ==
[2021-07-05 08:20] LABS: Creatinine, Blood 1.04 mg/dL (0.60-1.20); Vancomycin, Trough 14.2 ug/mL (5.0-10.0)
== END 2021-07-05 17:17 | disposition home or self-care (01) ==
LOC: ATC 02:23
PROVIDERS: Orthopaedic Surgery
DX: L02.413 Cutaneous abscess of right upper limb (principal)
CPT/HCPCS: 80202; 82565; J0696; J3370; J7060

== ENCOUNTER 2021-07-06 00:53 | Day surgery (SDC) | payer MEDICARE, OTHER | END 2021-07-06 17:26 | disposition home or self-care (01) | LOC: ATC 00:53 | DX: L02.413 Cutaneous abscess of right upper limb (principal) | CPT/HCPCS: J0696; J3370; J7060 ==

== ENCOUNTER 2021-07-06 01:22 | Day surgery (SDC) | payer MEDICARE, OTHER | END 2021-07-06 23:27 | disposition home or self-care (01) | LOC: WOUND 01:22 | DX: L02.413 Cutaneous abscess of right upper limb (principal); E11.9 Type 2 diabetes mellitus without complications; I10 Essential (primary) hypertension; Z79.84 Long term (current) use of oral hypoglycemic drugs; Z79.4 Long term (current) use of insulin; E78.5 Hyperlipidemia, unspecified; G47.30 Sleep apnea, unspecified; Z96.653 Presence of artificial knee joint, bilateral | CPT/HCPCS: G0463 ==

== ENCOUNTER 2021-07-07 02:52 | Day surgery (SDC) | payer MEDICARE, OTHER | END 2021-07-07 09:05 | disposition home or self-care (01) | LOC: ATC 02:52 | DX: L02.413 Cutaneous abscess of right upper limb (principal); I10 Essential (primary) hypertension; E11.9 Type 2 diabetes mellitus without complications; K21.9 Gastro-esophageal reflux disease without esophagitis; E78.5 Hyperlipidemia, unspecified; Z86.718 Personal history of other venous thrombosis and embolism; Z86.711 Personal history of pulmonary embolism; Z79.4 Long term (current) use of insulin; Z79.01 Long term (current) use of anticoagulants; Z79.899 Other long term (current) drug therapy | CPT/HCPCS: J0696; J3370; J7060 ==

== ENCOUNTER 2021-07-08 02:17 | Day surgery (SDC) | payer MEDICARE, OTHER | END 2021-07-08 23:59 | disposition home or self-care (01) | LOC: WOUND 02:17 | DX: L02.413 Cutaneous abscess of right upper limb (principal); E11.628 Type 2 diabetes mellitus with other skin complications; Z86.718 Personal history of other venous thrombosis and embolism; Z79.01 Long term (current) use of anticoagulants | CPT/HCPCS: A9270; G0463 ==

== ENCOUNTER 2021-07-10 01:43 | Day surgery (SDC) | payer MEDICARE, OTHER | END 2021-07-10 23:05 | disposition home or self-care (01) | LOC: WOUND 01:43 | DX: L02.413 Cutaneous abscess of right upper limb (principal); E11.628 Type 2 diabetes mellitus with other skin complications; Z79.01 Long term (current) use of anticoagulants; Z86.718 Personal history of other venous thrombosis and embolism | CPT/HCPCS: A9270; G0463 ==

== ENCOUNTER 2021-07-15 08:09 | Day surgery (SDC) | payer MEDICARE, OTHER ==
[2021-07-16] MEDS ORDERED: LINE600 PO (14:57)
== END 2021-07-15 22:57 | disposition home or self-care (01) ==
LOC: WOUND 08:09
DX: L02.413 Cutaneous abscess of right upper limb (principal); E11.628 Type 2 diabetes mellitus with other skin complications
CPT/HCPCS: G0463

== ENCOUNTER 2021-07-15 11:27 | Day surgery (SDC) | payer MEDICARE, OTHER ==
[~2021-07-15] VITALS: Ht 182.9 cm; Wt 128.2 kg
--- NOTE | 2021-07-15 12:52 | NUR ---
Ambulatory in Day Surgery History, Chart, Medications and Allergies reviewed before start of procedure. Patient confirms NPO status and agrees with scheduled surgery. Pre-Op teaching done. Pt verbalizes understanding. Patient States Post-Procedure ride home has been arranged.
--- NOTE | 2021-07-15 15:38 | NUR ---
07/15/21 1538 Clau Doshi PATIENT ALSO RECEIVED 1GM OF VANCO IN DAY SURGERY @1405 PRIOR TO ARRIVING IN THE OR.
--- NOTE | 2021-07-15 16:45 | NUR ---
PT ARRIVED TO THE SURG FLOOR FOR R SHOULDER I&D. PT IS TO RECIEVE ANTIBIOTICS OVERNIGHT. PT IS A&OX4 AND PLEASANT. NO C/O PAIN. PT WAS ABLE TO AMBULTE FROM PACU BED TO SURG BED WITH NO APPARENT DIFFICULTY. PT IS INDPENDENT IN ROOM. SIGNIFICANT OTHER IS IN ROOM WITH PT. VSS.
--- NOTE | 2021-07-15 19:19 | NUR ---
SHIFT SUMMARY PT IS POD#0 FOR R SHOULDER I&D. PT IS A&OX4 AND PLEASANT. PT IS ABLE TO AMBULATE WITHOUT APPARENT DIFFICULTY AND IS TOLERATING REGULAR DIET. PT HAS 3 INCISION SITES ON RIGHT UPPER ARM. AREA AROUND BANDAGE IS REDENEND AND A BIT SWOLLEN. PT STATED THE SWELLING HAS DECREASED SIGNIFICANTLY SINCE THE I&D. PT HAS GAUZE AND CLEAR BANDAGES OVER INCISION SITES. DRESSINGS ARE SATURATED WITH PINKISH DRAINAGE. VSS. PT WAS EDUATED TO THE USE OF CALL LIGHT AND IT IS WITHIN REACH. REPORT GIVEN TO VIDEO TAPE EDITOR NURSE.
[2021-07-16 04:34] LABS: BASOPHILS ABSOLUTE AUTO 0.04 K/mm3 (0.00-0.23); BASOPHILS PERCENT AUTO 0 % (0-2); EOSINOPHILS PERCENT AUTO 0 % (0-6); Hematocrit 45.8 % (37.0-53.0); Hemoglobin 14.2 g/dL (13.5-17.5); IMMATURE GRAN ABSOLUTE AUTO 0.13 K/mm3 (0.00-0.10); IMMATURE GRAN PERCENT AUTO 1 % (0-1); LYMPHOCYTES ABSOLUTE AUTO 1.34 K/mm3 (0.84-5.20); LYMPHOCYTES PERCENT AUTO 13 % (21-46); MONOCYTES ABSOLUTE AUTO 0.72 K/mm3 (0.16-1.47); MONOCYTES PERCENT AUTO 7 % (4-13); Mean Corpuscular HGB 28.7 pg (26.0-34.0); Mean Corpuscular Volume 93 fL (80-100); Mean Platelet Volume 10.1 fL (9.1-12.4); NEUTROPHILS ABSOLUTE AUTO 8.15 K/mm3 (1.96-9.15); NEUTROPHILS PERCENT AUTO 79 % (41-73); Platelet Count 282 K/mm3 (150-400); RDW Coefficient Variation 14.9 % (11.7-14.2); Red Blood Cell Count 4.94 M/mm3 (4.30-5.90); White Blood Cell Count 10.38 K/mm3 (4.00-11.30)
[2021-07-16 04:55] LABS: C-REACTIVE PROTEIN, EXT RANGE 2.3 mg/dL (0.000-0.300); Creatinine, Blood 0.95 mg/dL (0.60-1.20)
--- NOTE | 2021-07-16 05:11 | NUR ---
SUMMARY CHANGED LOWER DRESSING DUE TO LIANO KIARA ARDON SEEPING OUT FROM UNDER OPSITE. PAIN WELL CONTROLLED.TOLERATING PO AND VOIDING WITHOUT DIFF.NEED PICC LINE PLACED FOR [facility] ANTIBIOTICS.CURRENTLY NO IV.NEXT VANCO DUE 10 AM.
--- NOTE | 2021-07-16 13:27 | NUR ---
PICC ATTEMPT ATTEMPTED TO PLACE PICC X3 IN PH[facility], UNABLE TO ADVANCE GUIDE WIRE. UNABLE TO ACCESS VEIN TO PLACE POWER GLIDE IN PH[facility]. PLACED 20 GA IV IN RAC.
[2021-07-16] MEDS ORDERED: LINE600 PO (14:57)
--- NOTE | 2021-07-16 15:00 | NUR ---
UNABLE TO PLACE PICC LINE STAFF AT [facility] AWARE THAT MAGALIS WALDEN RN UNABLE TO PLACE PICC LINE. PLAN TO LEAVE IV IN PLACE FOR ABX TOMORROW AT [facility], AND FURTHER PICC LINE PLACMENT ATTEMPTS. ZANDRA SHAY NOTIFIED THAT PICC LINE ATTEMPTS WERE UNSUCCESSFUL.
--- NOTE | 2021-07-16 17:38 | NUR ---
SHIFT SUMMARY PT IS POD#1 FOR I&D OF R SHOULDER. PT IS A&OX4 AND PLEASANT. PT IS INDEPENDENT IN ROOM AND HAS AMBULATED IN THE HALLS. ASSESSED PT'S INCISION SITES TODAY AND NEW DRESSING WERE PLACED. PT WAS SCHEDULED TO HAVE PICC LINE PLACED TODAY HOWEVER PLACEMENT WAS UNSUCCESSFUL. [facility] IS AWARE THAT PICC LINE WAS NOT PLACED AND WILL OBTAIN VASCULAR ACCESS NEEDED FOR ANTIBIOTIC TREATMENT. PT IS TO RECIEVE HIS SECOND DOSE OF VANCOMYCIN AT 1999 TODAY AND THEN DISCHARGE HOME. ALL DISCHARGE PAPERS HAVE BEEN SIGNED AND PT EDUCATION GIVEN. WILL CONTINUE TO JERMAN.
--- NOTE | 2021-07-16 18:10 | NUR ---
SHIFT SUMMARY PT REMAINS IN THE HOSPITAL FOR FINAL DOSE OF ABX THIS EVENING, THEN WILL DISCHARGE HOME. PICC LINE PLACEMENT ATTEMPTED BY PICC RN, UNABLE TO PLACE. IV WILL BE LEFT IN PLACE UPON DISCHARGE HOME SO PT CAN HAVE IV ABX TOMORROW IN THE [facility]. [facility] IS AWARE THAT PT STILL NEEDS A PICC LINE AND THEY HAVE AN ORDER TO PLACE A PICC LINE. PT'S BLOOD GLUCOSE HAS BEEN ELEVATED THIS AM AND EARLY AFTERNOON. THIS EVENING BLOOD GLUCOSE IS BETTER CONTROLLED. BLOOD GLUCOSE 199 BEFORE DINNER. PT IS ALSO SELF MONITORING BLOOD GLUCOSE WITH HIS CONTINUOUS MONITOR. PT EDUCATED TO FOLLOW UP WITH HIS PCP IF HE IS UNABLE TO MAINTAIN BLOOD GLUCOSE LEVELS LESS THAN 180 AT HOME. PT PROVIDED WITH WRITTEN AND VERBAL DISCHARGE INSTRUCTIONS. PRESCRIPTION FOR ABX ALSO PROVIDED. PT REPORTED UNDERSTANDING INSTRUCTION.
--- NOTE | 2021-07-16 23:08 | NUR ---
DISCHARGE PT FINISHED IV VANCOMYCIN WITH NO ISSUES. IV SALINE LOCKED. PT TO KEEP IV TO BE USED AT [facility] TOMORROW MORNING. PT GIVEN DISCHARGE PAPERWORK AND GATHERED ALL PERSONAL BELONGINGS. PT ABLE TO AMBULATE ON HIS OWN OUT TO HIS VEHICLE WITH HIS .
== END 2021-07-16 22:30 | disposition home or self-care (01) ==
LOC: ORD 11:27 → ORSCMMR 11:27 → ORD 15:45 → SURS 16:38 → ORD 07-16 22:30
PROVIDERS: Orthopaedic Surgery
PROC: 0J9F0ZZ Drainage of Left Upper Arm Subcutaneous Tissue and Fascia, Open Approach (ICD-10-PCS; principal; 2021-07-15 14:30)
DX: L02.413 Cutaneous abscess of right upper limb (principal); E11.628 Type 2 diabetes mellitus with other skin complications; Z79.4 Long term (current) use of insulin; Z79.899 Other long term (current) drug therapy; G47.33 Obstructive sleep apnea (adult) (pediatric); I10 Essential (primary) hypertension; E66.9 Obesity, unspecified; Z68.38 Body mass index [BMI] 38.0-38.9, adult; Z86.718 Personal history of other venous thrombosis and embolism; Z79.01 Long term (current) use of anticoagulants; Z96.653 Presence of artificial knee joint, bilateral
CPT/HCPCS: 36415; 82565; 82947; 85025; 85651; 86140; 93005; 93010; A9270; G0463; J0690; J1100; J1815; J1885; J2020; J2405; J2704; J3010; J3370; J3480; J7050; J7060; J7120

== ENCOUNTER 2021-07-17 00:54 | Day surgery (SDC) | payer MEDICARE, OTHER ==
[~2021-07-17 00:54] MED LIST changes: +LINE600 PO
== END 2021-07-17 18:01 | disposition home or self-care (01) ==
LOC: ATC 00:54
DX: L02.413 Cutaneous abscess of right upper limb (principal); B43.2 Subcutaneous pheomycotic abscess and cyst; E11.9 Type 2 diabetes mellitus without complications; I10 Essential (primary) hypertension; E66.9 Obesity, unspecified; Z96.653 Presence of artificial knee joint, bilateral
CPT/HCPCS: J3370; J7060

== ENCOUNTER 2021-07-17 01:04 | Day surgery (SDC) | payer MEDICARE, OTHER | END 2021-07-17 23:26 | disposition home or self-care (01) | LOC: WOUND 01:04 | DX: L02.413 Cutaneous abscess of right upper limb (principal); E11.628 Type 2 diabetes mellitus with other skin complications; I10 Essential (primary) hypertension; E66.9 Obesity, unspecified; Z96.653 Presence of artificial knee joint, bilateral | CPT/HCPCS: G0463 ==

== ENCOUNTER 2021-07-19 00:53 | Day surgery (SDC) | payer MEDICARE, OTHER | END 2021-07-19 17:21 | disposition home or self-care (01) | LOC: ATC 00:53 | DX: L03.113 Cellulitis of right upper limb (principal); E11.9 Type 2 diabetes mellitus without complications; I10 Essential (primary) hypertension; K21.9 Gastro-esophageal reflux disease without esophagitis; E66.01 Morbid (severe) obesity due to excess calories; Z79.4 Long term (current) use of insulin; Z86.718 Personal history of other venous thrombosis and embolism; Z79.01 Long term (current) use of anticoagulants; Z96.653 Presence of artificial knee joint, bilateral | CPT/HCPCS: 96365; 96366; J3370; J7060 ==

== ENCOUNTER 2021-07-20 03:07 | Day surgery (SDC) | payer MEDICARE, OTHER | END 2021-07-20 23:24 | disposition home or self-care (01) | LOC: WOUND 03:07 | DX: L02.413 Cutaneous abscess of right upper limb (principal); E11.628 Type 2 diabetes mellitus with other skin complications | CPT/HCPCS: G0463 ==

== ENCOUNTER 2021-07-22 01:01 | Day surgery (SDC) | payer MEDICARE, OTHER | END 2021-07-22 23:26 | disposition home or self-care (01) | LOC: WOUND 01:01 | DX: L02.413 Cutaneous abscess of right upper limb (principal); L02.415 Cutaneous abscess of right lower limb; E11.622 Type 2 diabetes mellitus with other skin ulcer; L98.499 Non-pressure chronic ulcer of skin of other sites with unspecified severity | CPT/HCPCS: A9270; G0463 ==

== ENCOUNTER 2021-07-24 05:14 | Day surgery (SDC) | payer MEDICARE, OTHER | END 2021-07-24 23:07 | disposition home or self-care (01) | LOC: WOUND 05:14 | DX: L02.413 Cutaneous abscess of right upper limb (principal); E11.628 Type 2 diabetes mellitus with other skin complications | CPT/HCPCS: G0463 ==

== ENCOUNTER 2021-07-29 02:46 | Day surgery (SDC) | payer MEDICARE, OTHER | END 2021-07-29 23:44 | disposition home or self-care (01) | LOC: WOUND 02:46 | DX: L02.413 Cutaneous abscess of right upper limb (principal); L02.415 Cutaneous abscess of right lower limb; E11.628 Type 2 diabetes mellitus with other skin complications; Z86.718 Personal history of other venous thrombosis and embolism | CPT/HCPCS: A9270; G0463 ==

== ENCOUNTER 2021-07-31 03:38 | Day surgery (SDC) | payer MEDICARE, OTHER | END 2021-07-31 23:20 | disposition home or self-care (01) | LOC: WOUND 03:38 | DX: L02.413 Cutaneous abscess of right upper limb (principal); E11.628 Type 2 diabetes mellitus with other skin complications; Z86.718 Personal history of other venous thrombosis and embolism; Z79.01 Long term (current) use of anticoagulants | CPT/HCPCS: G0463 ==

== ENCOUNTER → 2021-08-05 | Day surgery (SDC) | payer MEDICARE, OTHER | LOC: WOUND 01:20 | DX: L02.413 Cutaneous abscess of right upper limb (principal); E11.628 Type 2 diabetes mellitus with other skin complications; Z86.718 Personal history of other venous thrombosis and embolism; Z79.01 Long term (current) use of anticoagulants | CPT/HCPCS: A9270; G0463 ==

== ENCOUNTER 2021-08-07 08:00 | Day surgery (SDC) | payer MEDICARE, OTHER | END 2021-08-07 23:59 | disposition home or self-care (01) | LOC: WOUND 08:00 | DX: L02.413 Cutaneous abscess of right upper limb (principal); E11.628 Type 2 diabetes mellitus with other skin complications; Z86.718 Personal history of other venous thrombosis and embolism | CPT/HCPCS: A9270; G0463 ==

== ENCOUNTER 2021-08-10 00:26 | Day surgery (SDC) | payer MEDICARE, OTHER | END 2021-08-10 23:46 | disposition home or self-care (01) | LOC: WOUND 00:26 | DX: L02.413 Cutaneous abscess of right upper limb (principal); E11.628 Type 2 diabetes mellitus with other skin complications; Z86.718 Personal history of other venous thrombosis and embolism; Z79.01 Long term (current) use of anticoagulants | CPT/HCPCS: A9270; G0463 ==

== ENCOUNTER 2021-08-12 03:57 | Day surgery (SDC) | payer MEDICARE, OTHER | END 2021-08-12 23:15 | disposition home or self-care (01) | LOC: WOUND 03:57 | DX: L02.413 Cutaneous abscess of right upper limb (principal); E11.628 Type 2 diabetes mellitus with other skin complications | CPT/HCPCS: A9270 ==

== ENCOUNTER 2021-08-14 01:38 | Day surgery (SDC) | payer MEDICARE, OTHER | END 2021-08-14 23:38 | disposition home or self-care (01) | LOC: WOUND 01:38 | DX: L02.413 Cutaneous abscess of right upper limb (principal); E11.628 Type 2 diabetes mellitus with other skin complications; S41.101A Unspecified open wound of right upper arm, initial encounter; S41.001A Unspecified open wound of right shoulder, initial encounter; X58.XXXA Exposure to other specified factors, initial encounter | CPT/HCPCS: A9270; G0463 ==

== ENCOUNTER 2021-08-17 08:00 | Day surgery (SDC) | payer MEDICARE, OTHER | END 2021-08-17 23:59 | disposition home or self-care (01) | LOC: WOUND 08:00 | DX: L02.413 Cutaneous abscess of right upper limb (principal); E11.628 Type 2 diabetes mellitus with other skin complications | CPT/HCPCS: G0463 ==

== ENCOUNTER 2021-08-19 00:29 | Day surgery (SDC) | payer MEDICARE, OTHER | END 2021-08-19 22:49 | disposition home or self-care (01) | LOC: WOUND 00:29 | DX: L02.413 Cutaneous abscess of right upper limb (principal); E11.628 Type 2 diabetes mellitus with other skin complications; Z86.718 Personal history of other venous thrombosis and embolism; Z79.01 Long term (current) use of anticoagulants | CPT/HCPCS: A9270; G0463 ==

== ENCOUNTER 2021-08-21 00:40 | Day surgery (SDC) | payer MEDICARE, OTHER | END 2021-08-21 23:03 | disposition home or self-care (01) | LOC: WOUND 00:40 | DX: L02.413 Cutaneous abscess of right upper limb (principal); E11.628 Type 2 diabetes mellitus with other skin complications | CPT/HCPCS: G0463 ==

== ENCOUNTER 2021-08-24 07:39 | Day surgery (SDC) | payer MEDICARE, OTHER | END 2021-08-24 23:13 | disposition home or self-care (01) | LOC: WOUND 07:39 | DX: L02.413 Cutaneous abscess of right upper limb (principal); E11.628 Type 2 diabetes mellitus with other skin complications | CPT/HCPCS: G0463 ==

== ENCOUNTER 2021-08-26 01:30 | Day surgery (SDC) | payer MEDICARE, OTHER | END 2021-08-26 22:46 | disposition home or self-care (01) | LOC: WOUND 01:30 | DX: L02.413 Cutaneous abscess of right upper limb (principal); E11.628 Type 2 diabetes mellitus with other skin complications | CPT/HCPCS: 10140; A9270 ==

== ENCOUNTER 2021-08-28 03:41 | Day surgery (SDC) | payer MEDICARE, OTHER | END 2021-08-28 23:11 | disposition home or self-care (01) | LOC: WOUND 03:41 | DX: Z48.00 Encounter for change or removal of nonsurgical wound dressing (principal); E11.628 Type 2 diabetes mellitus with other skin complications; L02.413 Cutaneous abscess of right upper limb | CPT/HCPCS: G0463 ==

== ENCOUNTER 2021-09-01 09:03 | Day surgery (SDC) | payer MEDICARE, OTHER | END 2021-09-01 23:00 | disposition home or self-care (01) | LOC: WOUND 09:03 | DX: L02.413 Cutaneous abscess of right upper limb (principal); E11.628 Type 2 diabetes mellitus with other skin complications | CPT/HCPCS: G0463 ==

== ENCOUNTER 2021-09-04 01:03 | Day surgery (SDC) | payer MEDICARE, OTHER | END 2021-09-04 23:12 | disposition home or self-care (01) | LOC: WOUND 01:03 | DX: L02.413 Cutaneous abscess of right upper limb (principal); E11.628 Type 2 diabetes mellitus with other skin complications | CPT/HCPCS: G0463 ==

== ENCOUNTER 2021-09-09 03:43 | Day surgery (SDC) | payer MEDICARE, OTHER | END 2021-09-09 23:50 | LOC: WOUND 03:43 | DX: L02.413 Cutaneous abscess of right upper limb (principal); E11.628 Type 2 diabetes mellitus with other skin complications | CPT/HCPCS: G0463 ==

== ENCOUNTER 2021-09-11 02:59 | Day surgery (SDC) | payer MEDICARE, OTHER | END 2021-09-11 23:13 | disposition home or self-care (01) | LOC: WOUND 02:59 | DX: L02.413 Cutaneous abscess of right upper limb (principal); E11.628 Type 2 diabetes mellitus with other skin complications | CPT/HCPCS: G0463 ==

== ENCOUNTER 2021-09-14 05:48 | Day surgery (SDC) | payer MEDICARE, OTHER | END 2021-09-14 23:43 | disposition home or self-care (01) | LOC: WOUND 05:48 | DX: L02.413 Cutaneous abscess of right upper limb (principal); E11.628 Type 2 diabetes mellitus with other skin complications | CPT/HCPCS: G0463 ==

== ENCOUNTER 2021-09-21 05:00 | Day surgery (SDC) | payer MEDICARE, OTHER | END 2021-09-21 23:29 | disposition home or self-care (01) | LOC: WOUND 05:00 | DX: L02.413 Cutaneous abscess of right upper limb (principal); E11.628 Type 2 diabetes mellitus with other skin complications; Z86.718 Personal history of other venous thrombosis and embolism; Z79.01 Long term (current) use of anticoagulants | CPT/HCPCS: G0463 ==

== ENCOUNTER 2021-10-05 01:05 | Day surgery (SDC) | payer MEDICARE, OTHER | END 2021-10-05 23:48 | disposition home or self-care (01) | LOC: WOUND 01:05 | DX: L02.413 Cutaneous abscess of right upper limb (principal); E11.628 Type 2 diabetes mellitus with other skin complications | CPT/HCPCS: A9270; G0463 ==

== ENCOUNTER → 2023-12-19 | Outpatient (CLI) | payer MEDICARE, OTHER ==
[2023-12-19 20:18] LABS: Microalb/Creat Ratio UR, Rand 37.798 mg/g (0.000-30.000); Microalbumin, Random Urine 63.5 mg/L (0.000-20.000)
== END ==
LOC: LAB 18:36 → LAB SHORT 18:36
PROVIDERS: Hospitalist
DX: E11.42 Type 2 diabetes mellitus with diabetic polyneuropathy (principal)
CPT/HCPCS: 82043; 82570

== ENCOUNTER 2024-02-02 23:36 | Observation (INO) | payer MEDICARE, OTHER ==
[~2024-02-02] VITALS: Ht 185.4 cm; Wt 131.8 kg
[2024-02-02] MEDS ORDERED: Ondansetron HCl 2 MG / ML 2ML Vial IV ONE (23:45)
[2024-02-03 00:18] LABS: BASOPHILS ABSOLUTE AUTO 0.07 K/mm3 (0.00-0.23); BASOPHILS PERCENT AUTO 1 % (0-2); EOSINOPHILS PERCENT AUTO 1 % (0-6); Hematocrit 50.1 % (37.0-53.0); Hemoglobin 16.1 g/dL (13.5-17.5); IMMATURE GRAN ABSOLUTE AUTO 0.15 K/mm3 (0.00-0.10); IMMATURE GRAN PERCENT AUTO 1 % (0-1); LYMPHOCYTES ABSOLUTE AUTO 2.22 K/mm3 (0.84-5.20); LYMPHOCYTES PERCENT AUTO 17 % (21-46); MONOCYTES ABSOLUTE AUTO 1.17 K/mm3 (0.16-1.47); MONOCYTES PERCENT AUTO 9 % (4-13); Mean Corpuscular HGB 29.1 pg (26.0-34.0); Mean Corpuscular HGB Conc 32.1 g/dL (31.5-36.5); Mean Corpuscular Volume 91 fL (80-100); Mean Platelet Volume 9.9 fL (9.1-12.4); NEUTROPHILS ABSOLUTE AUTO 9.23 K/mm3 (1.96-9.15); NEUTROPHILS PERCENT AUTO 71 % (41-73); Platelet Count 266 K/mm3 (150-400); RDW Coefficient Variation 16.2 % (11.7-14.2); RDW Standard Deviation 54.5 fL (35.1-46.3); Red Blood Cell Count 5.53 M/mm3 (4.30-5.90); White Blood Cell Count 12.94 K/mm3 (4.00-11.30)
[2024-02-03] MEDS ORDERED: Ketorolac Tromethamine 30mg Vial IV ONE (00:20)
[2024-02-03 00:36] LABS: Albumin, Blood 3.3 g/dL (3.4-5.0); Albumin/Globulin Ratio 0.8 (0.8-1.8); Bilirubin, Total 0.3 mg/dL (0.1-1.0); Bun/Creatinine Ratio 18.6 (12.0-20.0); Calcium, Blood 9.2 mg/dL (8.5-10.1); Creatinine, Blood 1.18 mg/dL (0.60-1.20); Globulin, Blood 3.9 g/dL (2.2-4.0); Potassium, Blood 4.1 mmol/L (3.5-5.5); Total Protein, Blood 7.2 g/dL (6.4-8.2)
[2024-02-03 01:56] LABS: Source, Urine Clean Catch
[2024-02-03 01:58] LABS: Bilirubin, Urine Neg (Neg); Blood, Urine Neg (Neg); Glucose Qualitative, Urine Neg (Neg); Ketones, Urine Neg (Neg); Leukocyte Esterase, Urine Neg (Neg); Nitrite, Urine Neg (Neg); Protein, Urine 1+ (Neg); Urobilinogen, Urine NORM (Normal)
[2024-02-03 02:16] LABS: Appearance, Urine Clear (Clear); Color, Urine Yellow (P-Yellow)
[2024-02-03] MEDS ORDERED: Piperacillin/Tazobactam Sod 4.5 GM in NS 100 ML IV ONE (03:55)
[2024-02-03] MEDS ORDERED: Lactated Ringer's 1,000 ML IV SCH (04:45)
[2024-02-03] MEDS ORDERED: FLU VACC TS2024-25(6MOS UP)/PF 45 MCG/0.5 ML SYRINGE IM ONE (04:45)
[2024-02-03] MEDS ORDERED: Ondansetron HCl 2 MG / ML 2ML Vial IV PRN (04:45)
[2024-02-03] MEDS ORDERED: Acetaminophen 325 MG TABLET PO PRN (04:45)
[2024-02-03] MEDS ORDERED: Ketorolac Tromethamine 15mg Vial IV PRN (04:55)
[2024-02-03] MEDS ORDERED: Indocyanine Green 25 MG Vial IV ONE (06:45)
[2024-02-03] MEDS ORDERED: HYDROmorphone HCl/Pf 1MG SYR IV PRN (06:50)
[2024-02-03] MEDS ORDERED: CefOXitin Sodium 2,000 MG in NS 50 ML IV SCH (06:55)
[2024-02-03 08:14] VITALS: BP 155/87
[2024-02-03 08:54] LABS: International Normalized Ratio 0.96; Prothrombin Time Results 10.3 Sec (9.7-11.5)
[2024-02-03] MEDS ORDERED: Insulin Glargine-Yfgn 100 Unit/mL 3 ML SYR SC SCH ×2 (09:00→16:00)
[2024-02-03] MEDS ORDERED: Lactobacil 2-S.Thermo-Bifido 1 1 Cap PO SCH (09:00)
[2024-02-03] MEDS ORDERED: Insulin Regular 100 UNIT/ML 10ML Vial SC SCH (12:00)
[2024-02-03] MEDS ORDERED: propofoL 0 ML IV ONE (12:22)
[2024-02-03] MEDS ORDERED: Ondansetron HCl 2 MG / ML 2ML Vial ONE (12:22)
[2024-02-03] MEDS ORDERED: Dexamethasone Sod Phos 10 MG/ML 1ML VIAL ONE (12:22)
[2024-02-03] MEDS ORDERED: Rocuronium Bromide 10 MG/ML 5ML Injection IV ONE (12:22)
[2024-02-03] MEDS ORDERED: FentaNYL Citrate 50 MCG/ML 5 ML Injection ONE (12:23)
[2024-02-03] MEDS ORDERED: Sugammadex Sodium 200 MG/2ML SDV (100 MG/ML) ONE (12:23)
[2024-02-03] MEDS ORDERED: Bupivacaine 0.5% HCl 5 MG/ML 30MLVIAL ONE (12:25)
--- NOTE | 2024-02-03 15:14 | NUR ---
ADMISSION/SHIFTT/TRANSFERRED SUMMARY: PATIENT ARRIVES TO ROOM AT 0810 VIA WHEELCHAIR FROM ER FOR DX'S OF CYSTIC DUCT CALCULUS. ADMISSION, MEDRIC AND SKIN ASSESSMENT c 2 RN'S VERIFIED COMPLETED. PATIENT ORIENTATED TO ROOM AND CALL SYSTEM. PATIENT A/OX4, CALM, PLEASANT AND COOPERATIVE c CARE. PATIENT REPORTS PAIN 4/10 TO R QUADRANT OF HIS ABDOMEN AND RADIATES TO BACK, MEDICATED X1 FOR PAIN PER EMAR c GREAT EFFECT. PATIENT WAS CONSULTED BY GENERAL SURGEON-DR. MANNING FOR POSSIBLE LAP PASHA. PATIENT PROCEDURE WAS HELD TODAY AND PLAN FOR TOMORROW. PATIENT DENIES N/V, ON CL DIET. PATIENT CONTINENT OF BLADDER, AMBULATES TO BATHROOM INDEPENDENTLY T/O THE DAY. PATIENT SHOWERED TODAY. PATIENT HAS PIV TO L FOREARM INFUSING LR AT 125 MLS/HR. VITAL SIGNS REVIEWED. PATIENT TRANSFERRED TO SURGICAL UNIT ROOM 227, TR GIVEN TO JAQUELIN MALONE REGARDING PLAN OF CARE.
[2024-02-03 15:38] VITALS: BP 180/84
--- NOTE | 2024-02-03 15:41 | NUR ---
ARRIVAL TO UNIT PATIENT TRANSFERRED TO UNIT AT APPROX 1530. PATIENT ABLE TO STAND AND TRANSFER FROM BED IN HALLWAY TO BED IN ROOM INDEPENDENTLY. ALERT AND ORIENTED X4. COMMUNICATES NEEDS EFFECTIVELY. SBP 180s POST AMBULATION. PATIENT ASYMPTOMATIC. MILD SHORTNESS OF BREATH WITH MOBILITY. ON ROOM AIR, SATs >90%. RR EVEN, UNLABORED AT REST. ABD PAIN TOLERABLE. DENIES N/V. TOLERATING CLEAR LIQUID DIET. IVF INFUSING PER EMAR. CALL LIGHT IN REACH. INDEPENDENT WITH ADLs. FAMILY AT BEDSIDE.
[2024-02-03 16:01] VITALS: BP 147/77
--- NOTE | 2024-02-03 16:12 | NUR ---
ADDITIONAL NOTE: PATIENT LEFT THE ROOM AT AROUND 1510'SH INCLUDING HIS PERSONAL BELONGINGS, TRANSPORTED VIA BED TO SURGICAL UNIT RM 227.
--- NOTE | 2024-02-03 17:17 | NUR ---
SHIFT SUMMARY NO ACUTE CHANGES SINCE ARRIVAL TO UNIT. PATIENTs BP IMPROVED, SBP 140s. ABD PAIN REMAINS TOLERABLE. TOLERATING PO INTAKE - NO EPISODES OF NAUSEA OR VOMITING. IVF INFUSING. REMAINS INDEPENDENT IN ROOM. COMMUNICATES NEEDS EFFECTIVELY. CALL LIGHT IN REACH. WILL CONTINUE TO MONITOR AND REPORT TO ONCOMING RN.
[2024-02-03 19:45] VITALS: BP 144/72
[2024-02-04] VITALS (18 sets, daily range): BP systolic 104–161; BP diastolic 68–95
[2024-02-04 05:07] LABS: BASOPHILS ABSOLUTE AUTO 0.05 K/mm3 (0.00-0.23); BASOPHILS PERCENT AUTO 1 % (0-2); EOSINOPHILS ABSOLUTE AUTO 0.11 K/mm3 (0.00-0.68); EOSINOPHILS PERCENT AUTO 1 % (0-6); Hematocrit 44.3 % (37.0-53.0); Hemoglobin 14.2 g/dL (13.5-17.5); IMMATURE GRAN ABSOLUTE AUTO 0.09 K/mm3 (0.00-0.10); IMMATURE GRAN PERCENT AUTO 1 % (0-1); LYMPHOCYTES PERCENT AUTO 19 % (21-46); MONOCYTES ABSOLUTE AUTO 0.82 K/mm3 (0.16-1.47); MONOCYTES PERCENT AUTO 9 % (4-13); Mean Corpuscular HGB 29.3 pg (26.0-34.0); Mean Corpuscular HGB Conc 32.1 g/dL (31.5-36.5); Mean Corpuscular Volume 92 fL (80-100); Mean Platelet Volume 9.9 fL (9.1-12.4); NEUTROPHILS ABSOLUTE AUTO 6.42 K/mm3 (1.96-9.15); NEUTROPHILS PERCENT AUTO 70 % (41-73); Platelet Count 231 K/mm3 (150-400); RDW Coefficient Variation 16.2 % (11.7-14.2); Red Blood Cell Count 4.84 M/mm3 (4.30-5.90); White Blood Cell Count 9.19 K/mm3 (4.00-11.30)
[2024-02-04 05:27] LABS: Bun/Creatinine Ratio 14.7 (12.0-20.0); Calcium, Blood 8.5 mg/dL (8.5-10.1); Creatinine, Blood 1.02 mg/dL (0.60-1.20); Potassium, Blood 4.1 mmol/L (3.5-5.5)
--- NOTE | 2024-02-04 05:37 | NUR ---
SHIFT SUMMARY PT HAS RESTED T/O THE NIGHT. INDEPENDENT IN THE ROOM. PAIN MANANGED WITH MEDS PER EMAR. NO N/V. PT ABLE TO TOLERATE CLEARS UNTIL BECOMING NPO AT MIDNIGHT. PLAN IS FOR SURGERY TODAY. PREOP WASH DONE. VITALS STABLE. BED IN LOWEST POSITION, CALL LIGHT WITHIN REACH.
[2024-02-04] MEDS ORDERED: Indocyanine Green 25 MG Vial IV ONE (08:05)
[2024-02-04] MEDS ORDERED: Bupivacaine 0.5% HCl 5 MG/ML 30MLVIAL ONE (08:24)
[2024-02-04] MEDS ORDERED: FentaNYL Citrate 50 MCG/ML 2 ML Injection ONE ×2 (08:28→12:02)
[2024-02-04] MEDS ORDERED: propofoL 20 ML IV ONE (08:28)
--- NOTE | 2024-02-04 08:46 | NUR ---
PT TO OR FROM ROOM 227. AMBULATED IND TO [facility]. NPO SINCE 0000 PER NOC RN. NOTIFIED OR NURSE OF BRACELET ON R WRIST. PER DR. QUICK, TO HOLD LONG ACTING INSULIN UNTIL AFTER SURGERY.
[2024-02-04] MEDS ORDERED: Dexamethasone Sod Phos 10 MG/ML 1ML VIAL ONE (09:28)
[2024-02-04] MEDS ORDERED: Rocuronium Bromide 10 MG/ML 5ML Injection IV ONE ×2 (09:28→10:09)
[2024-02-04] MEDS ORDERED: Ondansetron HCl 2 MG / ML 2ML Vial ONE (09:28)
[2024-02-04] MEDS ORDERED: HydrALAZINE HCl 20 MG / ML 1ML Vial ONE (09:48)
[2024-02-04] MEDS ORDERED: Metoclopramide HCl 5MG / ML 2ML Vial ONE (09:49)
[2024-02-04] MEDS ORDERED: Sugammadex Sodium 200 MG/2ML SDV (100 MG/ML) ONE (09:50)
--- NOTE | 2024-02-04 12:40 | NUR ---
PT BACK TO ROOM 227 FROM PACU. INCISION SITES C/D/I. PT IS ALERT AND RESPONSIVE. VSS. MEDICATED PT FOR PAIN. PT RESTING W/ CALL LIGHT IN REACH.
[2024-02-04] MEDS ORDERED: OxyCODONE HCL 5 MG TAB PO PRN (14:50)
[2024-02-04] MEDS ORDERED: Losartan Potassium 50 MG Tab PO SCH (16:00)
[2024-02-04] MEDS ORDERED: Insulin Regular 100 UNIT/ML 10ML Vial SC SCH (16:30)
[2024-02-04] MEDS ORDERED: CefOXitin 2000 mg Vial ONE (16:59)
[2024-02-04] MEDS ORDERED: Insulin Human Lispro 100 Units/ML 3ML Syringe SC SCH (17:30)
--- NOTE | 2024-02-04 19:38 | NUR ---
SHIFT SUMMARY PT IS PODO FOR LAP PASHA AND LYSIS OF ADHESIONS. LAP SITES X4 W/ EXOFEN C/D/I. PT VOIDING, PASSING GAS, TOLERATING REG DIET, PAIN TOLERABLE W/ PAIN MEDS PER EMAR. PT REFUSING PAS SINCE SURGERY, PT TO RESUME ANTICOAGULANT TOMORROW PER EMAR. VSS, O2 SATS >92% ON RA. PT AMBULATING INDEPENDENTLY TO BR. CURRENTLY RESTING PEACEFULLY W/ CALL LIGHT IN REACH.
[2024-02-04] MEDS ORDERED: Insulin Glargine-Yfgn 100 Unit/mL 3 ML SYR SC SCH (21:00)
[2024-02-05 04:13] VITALS: BP 147/83
[2024-02-05 05:44] LABS: BASOPHILS ABSOLUTE AUTO 0.04 K/mm3 (0.00-0.23); BASOPHILS PERCENT AUTO 0 % (0-2); EOSINOPHILS ABSOLUTE AUTO 0.01 K/mm3 (0.00-0.68); EOSINOPHILS PERCENT AUTO 0 % (0-6); Hematocrit 44.5 % (37.0-53.0); Hemoglobin 14.2 g/dL (13.5-17.5); IMMATURE GRAN ABSOLUTE AUTO 0.15 K/mm3 (0.00-0.10); IMMATURE GRAN PERCENT AUTO 1 % (0-1); LYMPHOCYTES ABSOLUTE AUTO 1.63 K/mm3 (0.84-5.20); LYMPHOCYTES PERCENT AUTO 14 % (21-46); MONOCYTES PERCENT AUTO 9 % (4-13); Mean Corpuscular HGB 29.1 pg (26.0-34.0); Mean Corpuscular HGB Conc 31.9 g/dL (31.5-36.5); Mean Corpuscular Volume 91 fL (80-100); Mean Platelet Volume 10.1 fL (9.1-12.4); NEUTROPHILS ABSOLUTE AUTO 8.94 K/mm3 (1.96-9.15); NEUTROPHILS PERCENT AUTO 76 % (41-73); Platelet Count 240 K/mm3 (150-400); RDW Coefficient Variation 16.3 % (11.7-14.2); RDW Standard Deviation 55.1 fL (35.1-46.3); Red Blood Cell Count 4.88 M/mm3 (4.30-5.90); White Blood Cell Count 11.77 K/mm3 (4.00-11.30)
[2024-02-05 06:14] LABS: Calcium, Blood 8.8 mg/dL (8.5-10.1); Creatinine, Blood 1.19 mg/dL (0.60-1.20); Potassium, Blood 4.1 mmol/L (3.5-5.5)
--- NOTE | 2024-02-05 06:50 | NUR ---
PT GIVEN PRN OXYCODONE THROUGHOUT NIGHT FOR MODERATE PAIN MANAGMENT. PT WAS ABLE TO SHOWER THIS MORNING WITH NO ISSUES. PTS LAP SITES ARE WNL AND CDI. NO FRUTHER QUESTIONS OR CONCERNS AT THIS TIME.
[2024-02-05 07:11] VITALS: BP 159/97
[2024-02-05] MEDS ORDERED: Polyethylene Glycol 3350 17 gm PO PRN (08:25)
[2024-02-05] MEDS ORDERED: Rivaroxaban 10 MG Tab PO SCH (09:00)
[2024-02-05] MEDS ORDERED: Apixaban 5 MG Tab PO SCH (09:00)
[2024-02-05 11:25] VITALS: BP 155/79
[2024-02-05] MEDS ORDERED: ACET325 PO (11:26)
[2024-02-05] MEDS ORDERED: MIRALAX17 GM PO (11:26)
[2024-02-05] MEDS ORDERED: OXAYDO5 M1 PO (11:28)
[2024-02-05] MEDS ORDERED: SENN187 PO (11:29)
--- NOTE | 2024-02-05 11:50 | NUR ---
discharged T99.5, NOTIFIED DR STEPHEN, NO NEW ORDERS. ENCOURAGED PT TO USE IS AT HOME. REVIEWED DC INSTRUCTIONS, PT VERBALIZED UNDERSTANDING. IV DC'D. PT LEFT UNIT BY AMBULATION, DECLINING WC, ACCOMPANIED BY SPOUSE AND GRANDDAUGHTER. SPOUSE HAD DC PAPERWORK AND PT'S POSSESSIONS IN HAND.
== END 2024-02-05 11:30 | disposition home or self-care (01) ==
LOC: ER 23:36 → ERHOLD 23:37 → ER 02-03 04:43 → SURS 02-03 04:43 → ERHOLD 02-03 04:43 → SURS 02-03 04:43 → MEDS 02-03 04:43 → ERHOLD 02-03 08:15 → MEDS 02-03 08:15 → SURS 02-03 15:31
PROVIDERS: Student in an Organized Health Care Education/Training Program; Surgery; ADMIT Internal Medicine
PROC: BF15ZZA Fluoroscopy of Liver, Guidance (ICD-10-PCS; 2024-02-04)
PROC: 0DBW4ZX Excision of Peritoneum, Percutaneous Endoscopic Approach, Diagnostic (ICD-10-PCS; 2024-02-04)
PROC: 8E0W4CZ Robotic Assisted Procedure of Trunk Region, Percutaneous Endoscopic Approach (ICD-10-PCS; 2024-02-04)
PROC: 0DNW4ZZ Release Peritoneum, Percutaneous Endoscopic Approach (ICD-10-PCS; 2024-02-04)
PROC: 0FT44ZZ Resection of Gallbladder, Percutaneous Endoscopic Approach (ICD-10-PCS; principal; 2024-02-04 09:00)
DX: K80.42 Calculus of bile duct with acute cholecystitis without obstruction (principal); E88.89 Other specified metabolic disorders; K76.0 Fatty (change of) liver, not elsewhere classified; D18.03 Hemangioma of intra-abdominal structures; M62.84 Sarcopenia; E65 Localized adiposity; Z68.28 Body mass index [BMI] 28.0-28.9, adult; K66.0 Peritoneal adhesions (postprocedural) (postinfection); Z28.21 Immunization not carried out because of patient refusal; E11.9 Type 2 diabetes mellitus without complications; I10 Essential (primary) hypertension; M19.90 Unspecified osteoarthritis, unspecified site; E66.01 Morbid (severe) obesity due to excess calories; K21.9 Gastro-esophageal reflux disease without esophagitis; Z86.718 Personal history of other venous thrombosis and embolism; Z86.711 Personal history of pulmonary embolism; Z96.653 Presence of artificial knee joint, bilateral; Z98.890 Other specified postprocedural states; Z79.4 Long term (current) use of insulin; Z79.84 Long term (current) use of oral hypoglycemic drugs; Z79.01 Long term (current) use of anticoagulants; Z87.891 Personal history of nicotine dependence
CPT/HCPCS: 36415; 74177; 76705; 80048; 80053; 82947; 83690; 85025; 85610; 85730; 88304; 96374; 96375; 96376; 99285; A9270; G0378; J0360; J0694; J1100; J1171; J1815; J1885; J2405; J2543; J2704; J2765; J3010; J7120; Q9967

== ENCOUNTER → 2024-10-19 | Outpatient (CLI) | payer MEDICARE, OTHER ==
[~2024-10-19] MED LIST changes: +ACET325 PO; +MIRALAX17 GM PO; +OXAYDO5 M1 PO; +SENN187 PO
[2024-10-19 14:58] LABS: Creatinine, Urine Random 313.0 mg/dL (27.00-270.00); Microalb/Creat Ratio UR, Rand 82.109 mg/g (0.000-30.000); Microalbumin, Random Urine 257.0 mg/L (0.000-20.000)
[2024-10-19 15:10] LABS: Anion Gap 9 mmol/L (3-11); Blood Urea Nitrogen 21 mg/dL (8-24); CHOL/HDL RATIO 3.3; CO2, Blood 30 mmol/L (21-32); Calcium, Blood 9.3 mg/dL (8.5-10.1); Chloride, Blood 107 mmol/L (98-108); Cholesterol 186 mg/dL (50-200); Creatinine, Blood 1.38 mg/dL (0.60-1.20); Glucose, Blood 179 mg/dL (70-99); HDL Cholesterol 56 mg/dL (>39); LDL/HDL RATIO 1.6; Low Density Lipoprotein Chol 90 mg/dL (0-110); Potassium, Blood 4.3 mmol/L (3.5-5.5); Prostate Specific Antigen 1.630 ng/mL (0.000-4.000); Sodium, Blood 142 mmol/L (136-145); Triglycerides 199 mg/dL (30-160); Very Low Density Lipoprot Chol 39 mg/dL (6-32)
== END | disposition home or self-care (01) ==
LOC: LAB SHORT 12:22 → LAB 12:22
PROVIDERS: Hospitalist
DX: Z12.5 Encounter for screening for malignant neoplasm of prostate (principal); E78.2 Mixed hyperlipidemia; I10 Essential (primary) hypertension; E11.42 Type 2 diabetes mellitus with diabetic polyneuropathy
CPT/HCPCS: 80048; 80061; 82043; 82570; G0103

== ENCOUNTER → 2024-11-05 | Outpatient (CLI) | payer MEDICARE, OTHER ==
[2024-11-05 16:27] LABS: Anion Gap 3.0 mmol/L (3-11); Blood Urea Nitrogen 20.0 mg/dL (8-24); CO2, Blood 30.0 mmol/L (21-32); Calcium, Blood 8.7 mg/dL (8.5-10.1); Chloride, Blood 112.0 mmol/L (98-108); Creatinine, Blood 1.01 mg/dL (0.60-1.20); Glucose, Blood 107.0 mg/dL (70-99); Potassium, Blood 4.2 mmol/L (3.5-5.5); Sodium, Blood 141.0 mmol/L (136-145)
== END ==
LOC: LAB SHORT 07:45 → LAB 07:45
PROVIDERS: Hospitalist
DX: N17.0 Acute kidney failure with tubular necrosis (principal)
CPT/HCPCS: 80048